=== PATIENT | male | born 1950 | race Caucasian/White ===

== ENCOUNTER → 2017-09-25 | Outpatient (CLI) | payer MEDICARE, OTHER | END | disposition home or self-care (01) | LOC: KCIC MRI 08:18 | DX: M54.16 Radiculopathy, lumbar region (principal); M48.061 Spinal stenosis, lumbar region without neurogenic claudication; E88.2 Lipomatosis, not elsewhere classified; R20.0 Anesthesia of skin | CPT/HCPCS: 72148 ==

== ENCOUNTER → 2017-10-02 | Outpatient (CLI) | payer MEDICARE, OTHER ==
[~2017-10-02] MED LIST: IOHEXOL 180 MG/ML 10 ML VIAL.; methylPREDNISolone ACETATE 40 MG/ML VIAL.; methylPREDNISolone ACETATE 80 MG/ML VIAL.
== END | disposition home or self-care (01) ==
LOC: PNCL 09:50
DX: M51.16 Intervertebral disc disorders with radiculopathy, lumbar region (principal); M48.061 Spinal stenosis, lumbar region without neurogenic claudication; E11.9 Type 2 diabetes mellitus without complications; M19.90 Unspecified osteoarthritis, unspecified site; I10 Essential (primary) hypertension; E78.5 Hyperlipidemia, unspecified; F41.9 Anxiety disorder, unspecified; Z88.6 Allergy status to analgesic agent
CPT/HCPCS: 62323; J1030; J1040

== ENCOUNTER → 2017-10-16 | Outpatient (CLI) | payer MEDICARE, OTHER | END | disposition home or self-care (01) | LOC: PNCL 08:17 | DX: M51.16 Intervertebral disc disorders with radiculopathy, lumbar region (principal); M48.061 Spinal stenosis, lumbar region without neurogenic claudication | CPT/HCPCS: 99212 ==

== ENCOUNTER → 2018-01-25 | Outpatient (CLI) | payer MEDICARE, OTHER | END | disposition home or self-care (01) | LOC: RAD 08:50 | DX: Z01.818 Encounter for other preprocedural examination (principal); M17.11 Unilateral primary osteoarthritis, right knee; S83.241A Other tear of medial meniscus, current injury, right knee, initial encounter; X58.XXXA Exposure to other specified factors, initial encounter; Y93.89 Activity, other specified; Y92.89 Other specified places as the place of occurrence of the external cause; Y99.8 Other external cause status | CPT/HCPCS: 73721; 77073 ==

== ENCOUNTER → 2018-02-15 | Outpatient (CLI) | payer MEDICARE, OTHER ==
[2018-02-15 09:01] LABS: ADD MAN DIFF? NO
[2018-02-15 09:05] LABS: BASO % 1 % (0-3); EOS # 0.1 x10^3/uL (0.0-0.7); EOS % 2 % (0-3); HEMATOCRIT 39.3 % (39.0-53.0); HEMOGLOBIN 13.5 g/dL (13.0-17.5); LYMPH % 37 % (24-48); MEAN CORPUSCULAR HEMOGLOBIN 33 pg (25-35); MEAN CORPUSCULAR HGB CONC 35 g/dL (31-37); MEAN CORPUSCULAR VOLUME 96 fL (79-100); MONO # 0.5 x10^3/uL (0.0-1.1); MONO % 9 % (0-9); NEUT # 2.8 x10^3uL (1.8-7.7); NEUT % 52 % (31-73); PLATELET COUNT 185 x10^3/uL (140-400); RED CELL DISTRIBUTION WIDTH 12.5 % (11.5-14.5); WHITE BLOOD COUNT 5.5 x10^3/uL (4.0-11.0)
[2018-02-15 09:20] LABS: INR 0.9 (0.8-1.1); PARTIAL THROMBOPLASTIN TIME 27 SEC (24-38)
[2018-02-15 09:26] LABS: ANION GAP 9 (6-14); BLOOD UREA NITROGEN 30 mg/dL (8-26); CALCIUM 8.7 mg/dL (8.5-10.1); CARBON DIOXIDE 30 mmol/L (21-32); CHLORIDE 103 mmol/L (98-107); CREATININE 0.8 mg/dL (0.7-1.3); GFR 96.1; GLUCOSE 120 mg/dL (70-99); SODIUM 142 mmol/L (136-145)
[2018-02-15 10:07] LABS: BILIRUBIN,URINE NEGATIVE (NEG); CLARITY,URINE CLEAR; COLOR,URINE YELLOW; GLUCOSE,URINE 500 mg/dL (NEG); NITRITE,URINE NEGATIVE (NEG); PROTEIN,URINE NEGATIVE (NEG-TRACE)
[2018-02-15 10:18] LABS: BACTERIA,URINE 0 /HPF (0-FEW); RBC,URINE 0 /HPF (0-2); SQUAMOUS EPITHELIAL CELL,UR OCC /LPF; WBC,URINE OCC /HPF (0-4)
[2018-02-15 10:57] LABS: SEDIMENTATION RATE 14 (0-15)
[2018-02-15 23:12] LABS: MRSA BY PCR Negative (Negative)
[2018-02-16 02:13] LABS: HEMOGLOBIN A1C 5.9 % (4.8-5.6)
== END | disposition home or self-care (01) ==
LOC: SURGPAT 13:28
DX: Z01.818 Encounter for other preprocedural examination (principal); I10 Essential (primary) hypertension; R79.89 Other specified abnormal findings of blood chemistry; Z98.890 Other specified postprocedural states; Z79.01 Long term (current) use of anticoagulants
CPT/HCPCS: 36415; 71046; 80048; 81001; 82040; 83036; 85025; 85610; 85651; 85730; 87641; 93005

== ENCOUNTER 2018-03-25 08:49 | Emergency (ER) | payer MEDICARE, OTHER | END 2018-03-25 10:14 | disposition home or self-care (01) | LOC: ER 08:49 | DX: G58.8 Other specified mononeuropathies (principal); E11.9 Type 2 diabetes mellitus without complications; I10 Essential (primary) hypertension; Z88.8 Allergy status to other drugs, medicaments and biological substances | CPT/HCPCS: 70450; 72125; 99284-25 ==

== ENCOUNTER → 2018-04-08 | Outpatient (CLI) | payer MEDICARE, OTHER ==
[~2018-04-08] MED LIST changes: +LIDOCAINE 1% PF 2 ML VIAL.; -methylPREDNISolone ACETATE 80 MG/ML VIAL.
== END | disposition home or self-care (01) ==
LOC: PNCL 10:15
DX: M50.123 Cervical disc disorder at C6-C7 level with radiculopathy (principal); M48.02 Spinal stenosis, cervical region; M51.16 Intervertebral disc disorders with radiculopathy, lumbar region; M48.061 Spinal stenosis, lumbar region without neurogenic claudication; E78.00 Pure hypercholesterolemia, unspecified; I10 Essential (primary) hypertension; E11.9 Type 2 diabetes mellitus without complications; F41.9 Anxiety disorder, unspecified; Z88.8 Allergy status to other drugs, medicaments and biological substances; Z98.42 Cataract extraction status, left eye; Z98.41 Cataract extraction status, right eye; Z96.1 Presence of intraocular lens; M17.0 Bilateral primary osteoarthritis of knee; Z98.890 Other specified postprocedural states; Z83.3 Family history of diabetes mellitus; Z82.49 Family history of ischemic heart disease and other diseases of the circulatory system; Z96.651 Presence of right artificial knee joint; Z79.84 Long term (current) use of oral hypoglycemic drugs; Z79.899 Other long term (current) drug therapy
CPT/HCPCS: 62321; J1030; Q9965

== ENCOUNTER → 2018-06-23 | Outpatient (CLI) | payer MEDICARE, OTHER ==
[2018-03-25 10:14] VITALS: BP 114/74
[~2018-06-23] MED LIST changes: +ASPI-482 PO; +CHLO25TA PO; -IOHEXOL 180 MG/ML 10 ML VIAL.; +IOHEXOL 180 MG/ML 10 ML VIAL. ONE; -LIDOCAINE 1% PF 2 ML VIAL.; +LIDOCAINE 2% PF 2ML VIAL. ONE; +LISI-130 PO; +MELO7.5T29 PO; +METF10007 PO; +METO-239 PO; +METO50TA6 PO; +SERT50TA8 PO; +SILD100T PO; +SIMV80TA7 PO; +TAMS0.4C2 PO; +WARF4TAB68 PO; -methylPREDNISolone ACETATE 40 MG/ML VIAL.; +methylPREDNISolone ACETATE 40 MG/ML VIAL. ONE; +methylPREDNISolone ACETATE 80 MG/ML VIAL. ONE
--- NOTE | 2018-06-23 16:08 | PAIN ---
DATE OF SERVICE: 06/23/2018 DIAGNOSES: Lumbar radiculopathy with lumbar spinal stenosis, lumbar degenerative disk disease. HISTORY OF PRESENT ILLNESS: The patient is a 67-year-old male who returns for followup status post lumbar epidural steroid injection x 2 and cervical epidural steroid injection x 1. Most recently seen on 04/08/2018. The patient did very well, 100% improvement of his neck pain. His back pain is what bothers him today. He has not had any injections since October of this year for his back, still some aching pain, beginning to radiate into bilateral lower extremities, tingling, aching, tight sensation, becoming more constant, worse with walking, standing, changing positions, better with sitting or lying down, occasionally wakes him from sleep, but not every night. The patient reports he is increasing his activity and doing greater with household activities, walking and household functions with much greater ease and comfort over the past 1 month or so. The pain began to return in the low back. The patient reports it is a 7 on a scale of 10 at its worst, 4 on average, 2 at its least and is a 4 today. The patient reports no new motor or sensory deficits, no new bowel or bladder incontinence or other complaints. He has recently had his right knee replaced in February and walking much better, walking much further and then doing well with his right knee. PHYSICAL EXAMINATION: VITAL SIGNS: The patient's blood pressure 139/81, pulse 57, respirations 16, temperature is 98.1 degrees Fahrenheit. Height is 68 inches, weighs 192 pounds. GENERAL: The patient is awake, alert, oriented, appropriate, very pleasant demeanor. HEENT: Head is normocephalic, atraumatic. Extraocular movements are intact, symmetrical. Oral cavity: Mucous membranes moist and pink. Dentition is intact. NECK: Shows anterior throat supple without palpable lymphadenopathy noted. Swallow reflex symmetrical. CHEST: Shows normal on inspection. Breath sounds clear to auscultation bilaterally. HEART: Shows S1, S2 clear. No murmurs auscultated. ABDOMEN: Soft, nontender, nondistended. No palpable organomegaly is noted. No rebound or guarding demonstrated. BACK: Shows spine grossly in the midline. Normal appearing thoracic kyphosis, cervical lordotic curvature and lumbar lordotic curvature. Lumbar paraspinous muscle shows symmetrical on inspection. On palpation shows some moderate tenderness but only diffusely with palpation in the low lumbar distribution without radiation. The patient's back shows good rotational motion of the lumbar spine, both laterally as well as extension and flexion without difficulty. The patient's lower extremities show deep tendon reflexes at 2+ in the patellar, 1+ tendo calcaneus, well-healed surgical scars noted over the right knee. Motor exam is strong with 5/5 dorsiflexion, extension, quadriceps and hamstring flexion. Peripheral pulses are 1+ posterior tibia. No peripheral edema is noted bilaterally. Options were discussed with the patient. The patient's old chart was reviewed as his current medication regimen updated. Current review of systems updated today as well. We will proceed with a lumbar epidural steroid injection today, first in this series with fluoroscopic guidance. Risks were again discussed including, but not limited to bleeding, infection, possibility of epidural hematoma and subsequent neurological compromise, dural puncture, headaches, spinal cord and/or nerve damage, side effects of steroid medication and poor results regarding pain control. The patient understands and wished to proceed. The patient will return to clinic in approximately 2 weeks for followup, was counseled on return appointment, activity level and side effects to be aware of. DIAGNOSES: Lumbar radiculopathy with lumbar spinal stenosis, lumbar degenerative disk disease. PROCEDURES: Lumbar epidural steroid injection, translaminar approach at L4-5 using C-arm fluoroscopic guidance under sterile prep and drape using local anesthetic. MEDICATION INJECTED: A total of 120 mg Depo-Medrol plus 10 mL of preservative-free normal saline and 2 mL of Isovue for contrast. CONDITION AT DISCHARGE: Stable. The patient tolerated the procedure well, had no complications. ALOK KING MD DR: ИВАН/kurt JOB#: [id number] / [id number]
== END | disposition home or self-care (01) ==
LOC: PNCL 08:36
PROVIDERS: ATTEND Anesthesiology
DX: M51.16 Intervertebral disc disorders with radiculopathy, lumbar region (principal); M48.061 Spinal stenosis, lumbar region without neurogenic claudication; Z88.8 Allergy status to other drugs, medicaments and biological substances
CPT/HCPCS: 62323; J1030; J1040; J2001; Q9965

== ENCOUNTER → 2018-07-07 | Outpatient (CLI) | payer MEDICARE, OTHER ==
[2018-03-25 10:14] VITALS: BP 114/74
[~2018-07-07] MED LIST changes: -IOHEXOL 180 MG/ML 10 ML VIAL. ONE; -LIDOCAINE 2% PF 2ML VIAL. ONE; -methylPREDNISolone ACETATE 40 MG/ML VIAL. ONE; -methylPREDNISolone ACETATE 80 MG/ML VIAL. ONE
--- NOTE | 2018-07-07 20:07 | PAIN ---
DATE OF SERVICE: 07/07/2018 DIAGNOSES: Lumbar radiculopathy with lumbar spinal stenosis, lumbar degenerative disk disease. HISTORY OF PRESENT ILLNESS: The patient is a 67-year-old male who returns for followup status post lumbar epidural steroid injection x 1 and cervical epidural steroid injection x 1. The patient most recently had his lumbar injection and did very well with about 75% improved overall. The patient reports he is increasing his activity, greater distance walking, bowling, playing golf, doing household activities, feeling much better, sleeping well at night, has some cramping in his legs that is only real complaint at this time. The patient reports he is much better. The numbness in his feet is doing better as well. The patient reports the pain is a 1 on a scale of 10 at its worst, 0 on average, 0 at its least and is 0 today. The patient reports no new motor or sensory deficits. No new bowel or bladder incontinence or other complaints. PHYSICAL EXAMINATION: VITAL SIGNS: The patient's blood pressure 122/70, pulse 56, respirations 16, temperature 97.5 degrees Fahrenheit, height is 68 inches, weighs 191 pounds. GENERAL: The patient is awake, alert, oriented, appropriate, very pleasant demeanor. HEENT: Shows normocephalic, atraumatic. Extraocular movements are intact and symmetrical. Oral cavity: Mucous membranes are moist and pink. Dentition is intact. NECK: Shows anterior throat supple without palpable lymphadenopathy noted. Swallow reflex is symmetrical. CHEST: Shows normal on inspection. Breath sounds are clear to auscultation bilaterally. HEART: Shows S1, S2 clear. No murmurs auscultated. ABDOMEN: Soft, nontender, nondistended. No palpable organomegaly is noted. No rebound or guarding demonstrated. BACK: Shows spine grossly in the midline. Normal appearing thoracic kyphosis and lumbar lordotic curvature. Lumbar paraspinous muscle shows symmetrical on inspection. On palpation shows some very mild tenderness in the lower lumbar distribution of paraspinous muscles, but without radiation, without trigger points. The patient has full rotational motion of lumbar spine both laterally as well as extension and flexion without difficulty. EXTREMITIES: Lower extremities show deep tendon reflexes 2+ in the patellar, 1+ tendo calcaneus tendons. Motor exam is strong with 5/5 dorsiflexion, extension, quadriceps and hamstring flexion and symmetrical. Peripheral pulses are 1+ posterior tibia. No peripheral edema is noted bilaterally. Options were discussed with the patient. The patient's old chart was reviewed as is his current medication regimen updated. Current review of systems is updated today as well. We will hold on any further injections at that time as the patient is doing quite well. The patient will increase his activity as tolerated and will follow up at this time on as needed basis. ALOK KING MD DR: ИВАН/kurt JOB#: [id number] / [id number]
== END | disposition home or self-care (01) ==
LOC: PNCL 08:22
PROVIDERS: ATTEND Anesthesiology
DX: M51.16 Intervertebral disc disorders with radiculopathy, lumbar region (principal); M48.061 Spinal stenosis, lumbar region without neurogenic claudication
CPT/HCPCS: G0463

== ENCOUNTER → 2018-12-17 | Outpatient (CLI) | payer MEDICARE, OTHER ==
[2018-03-25 10:14] VITALS: BP 114/74
[~2018-12-17] MED LIST changes: -CHLO25TA PO; +CHLO25TA10 PO; +IOHEXOL 180 MG/ML 10 ML VIAL. ONE; +SIMV80TA17 PO; -SIMV80TA7 PO; +methylPREDNISolone ACETATE 40 MG/ML VIAL. ONE; +methylPREDNISolone ACETATE 80 MG/ML VIAL. ONE
--- NOTE | 2018-12-18 02:36 | PAIN ---
DATE OF SERVICE: 12/17/2018 DIAGNOSES: 1. Lumbar radiculopathy with lumbar spinal stenosis, lumbar degenerative disk disease. 2. Cervical radiculopathy with cervical spinal stenosis and cervical degenerative disk disease. HISTORY OF PRESENT ILLNESS: The patient is a 68-year-old male who returns for followup status post lumbar epidural steroid injection, most recently seen 06/23/2018. The patient did very well, about 75% improvement. The patient reports the pain is returning now in the low back and into the right lower extremity greater than the left. The patient reports it is present bilaterally, but across the low back into the posterior gluteus, posterior lateral thigh, lateral anterior thighs, more on the right side radiating, but also on the left side into the posterior calf as well as the anterior lower leg. The patient reports it is aching, dull, tight, tingling, becoming more constant, also pain in the base of neck and left upper extremity, which is becoming more noticeable as well, but his chief complaint is low back and lower extremity pain. The patient reports his pain is 8 on a scale of 10 on average, at its worst is also an 8 and 2 at its least, is an 8 today. The patient reports no new motor or sensory deficits. Initially, he was doing very well with increased activity, doing work activities, household activities, traveling with greater ease and comfort. 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 The patient reports it is better with sitting or lying down, does not bother him much. In these positions, he is able to sleep at night, does not disturb his sleep. The patient reports no new motor or sensory deficits, no new bowel or bladder incontinence or other complaints. PHYSICAL EXAMINATION: VITAL SIGNS: The patient's blood pressure 149/81, pulse 61, respirations 18, temperature 97.8 degrees Fahrenheit, height is 68 inches, weight is 201 pounds. GENERAL: The patient is awake, alert, oriented, appropriate, very pleasant demeanor. HEENT: Head is normocephalic, atraumatic. Extraocular movements are intact and symmetrical. Oral cavity: Mucous membranes are moist and pink. Dentition is intact. NECK: Shows anterior throat supple without palpable lymphadenopathy noted. Swallow reflex symmetrical. CHEST: Shows normal on inspection. Breath sounds clear to auscultation bilaterally. HEART: Shows S1, S2 clear. No murmurs auscultated. ABDOMEN: Soft, nontender, nondistended. No palpable organomegaly is noted. No rebound or guarding demonstrated. BACK: Shows spine grossly in the midline. Normal appearing thoracic kyphosis and lumbar lordotic curvature. Cervical paraspinous muscle shows symmetrical on inspection; there is some moderate tenderness in the inferior aspect of the left paraspinous musculature as well as the left superior medial trapezius, but without significant radiation. The patient shows good rotational motion of cervical spine, both laterally as well as extension and flexion without significant increase in pain. The patient's upper extremities show deep tendon reflexes 2+ in the biceps and triceps tendons and are equal. Motor exam is strong with power distribution engineer strength rated at 5/5 on the right and 4/5 with power distribution engineer strength on the left. The patient's back shows spine grossly in the midline. Normal appearing thoracic kyphosis, some minor flattening of lumbar lordotic curvature. Lumbar paraspinous muscle shows symmetrical on inspection, on palpation shows some moderate tenderness diffusely but only diffusely in the low lumbar distribution without significant radiation. The patient has good rotational motion of lumbar spine, both laterally greater than 10 degrees right and left as well as extension greater than 10 degrees, forward flexion 45 degrees without pain reported. EXTREMITIES: Lower extremities show deep tendon reflexes 2+ in the patellar, 1+ tendo-calcaneus tendons are equal. Motor exam is strong with 5/5 dorsiflexion, extension, quadriceps and hamstring flexion equal and symmetrical. Peripheral pulses are 1+ posterior tibial, 2+ radial. No peripheral edema is noted bilaterally upper or lower extremities. Options were discussed with the patient. The patient's old chart was reviewed as his current medication regimen updated. Current review of systems updated today as well. We will proceed with lumbar epidural steroid injections, the first in this series today with fluoroscopic guidance. Risks were again discussed including, but not limited to bleeding, infection, possibility of epidural hematoma, subsequent neurological compromise, dural puncture, headaches, spinal cord and/or nerve damage, side effects of steroid medication and poor results regarding pain control. The patient understands and wished to proceed. The patient will return to clinic in approximately 2 weeks for followup, was counseled as to return appointment, activity level and side effects to be aware of. DIAGNOSES: Lumbar radiculopathy with lumbar degenerative disk disease, lumbar spinal stenosis. PROCEDURE: Lumbar epidural steroid injection, translaminar approach at the L4-L5 level using C-arm fluoroscopic guidance under sterile prep and drape using local anesthetic. MEDICATION INJECTED: A total of 120 mg Depo-Medrol plus 10 mL of preservative-free normal saline and 2 mL for contrast. CONDITION AT DISCHARGE: Stable. The patient tolerated procedure well, had no complications. ALOK KING MD DR: ИВАН/kurt JOB#: [id number] / [id number]
== END | disposition home or self-care (01) ==
LOC: PNCL 11:10
PROVIDERS: ATTEND Anesthesiology
DX: M51.16 Intervertebral disc disorders with radiculopathy, lumbar region (principal); M48.061 Spinal stenosis, lumbar region without neurogenic claudication; M48.02 Spinal stenosis, cervical region; M50.10 Cervical disc disorder with radiculopathy, unspecified cervical region; Z88.8 Allergy status to other drugs, medicaments and biological substances
CPT/HCPCS: 62323; J1030; J1040; Q9965

== ENCOUNTER → 2019-01-06 | Outpatient (CLI) | payer MEDICARE, OTHER ==
[2018-03-25 10:14] VITALS: BP 114/74
--- NOTE | 2019-01-06 20:37 | PAIN ---
DATE OF SERVICE: 01/06/2019 DIAGNOSES: 1. Lumbar radiculopathy with lumbar spinal stenosis, lumbar degenerative disk disease. 2. Cervical radiculopathy with cervical spinal stenosis and cervical degenerative disk disease. HISTORY OF PRESENT ILLNESS: The patient is a 68-year-old male who returns followup status post lumbar epidural steroid injection x 1. The patient reports about 80% improvement only for a few days following the injection. The patient reports the pain returned in the low back and slightly more on the left side than the right, posterior gluteus, posterolateral thigh, lateral anterior thigh, medial thighs again more on the left side. The patient reports still some pain in the base of the neck and left shoulder as well, but his back pain is his primary concern. The patient reports it is aching, tight, shooting, tingling, cramping and becoming more constant with activity. Initially, he was increasing his activity, distance walking, doing some work activities, household activities with greater ease and comfort, traveling better, but then the pain returned. The patient reports it is an 8 on a scale of 10 at its worst, is 8 on average and a 5 at its least over the past week and is an 8 today. The patient reports no new motor or sensory deficits, no new bowel or bladder incontinence or other complaints. PHYSICAL EXAMINATION: VITAL SIGNS: The patient's blood pressure 113/67, pulse is 56, respirations 16, temperature 98.1 degrees Fahrenheit, height is 68 inches, weighs 198 pounds. GENERAL: The patient is awake, alert, oriented, appropriate, very pleasant demeanor. HEENT: Head is normocephalic, atraumatic. Extraocular movements are intact and symmetrical. Oral cavity: Mucous membranes moist and pink. Dentition is intact. NECK: Shows anterior throat supple without palpable lymphadenopathy noted. Swallow reflex symmetrical. CHEST: Shows normal with inspection. Breath sounds clear to auscultation bilaterally. HEART: Shows S1, S2 clear. No murmurs auscultated. ABDOMEN: Soft, nontender, nondistended. No palpable organomegaly is noted. No rebound or guarding demonstrated. BACK: Shows spine grossly in the midline. Normal appearing thoracic kyphosis and the minor flattening of lumbar lordotic curvature. Cervical paraspinous muscle shows symmetrical on inspection as well. With palpation shows some mild tenderness, but only diffusely without radiation. The patient has good rotational motion of cervical spine, both laterally as well as extension and flexion without difficulty. The patient's lumbar paraspinous muscle shows symmetrical on inspection. On palpation shows some moderate tenderness diffusely bilaterally, but only diffusely without significant radiation. The patient has good rotational motion greater than 10 degrees right and left as well as extension greater than 10 degrees, forward flexion 45 degrees without significant pain reported. EXTREMITIES: Lower extremities show deep tendon reflexes at 1+ in the patellar and tendo calcaneus tendons are equal. Motor exam is approximately 5 on a scale of 5, but equal and symmetrical bilaterally with dorsiflexion, extension, quadriceps and hamstring flexion. Peripheral pulses are 1+ posterior tibial. No peripheral edema is noted bilaterally. Options were discussed with the patient. The patient's old chart was reviewed as his current medication regimen updated. Current review of systems updated today as well. We will proceed with a second in the series of lumbar epidural steroid injection today with fluoroscopic guidance. Risks were again discussed including, but not limited to bleeding, infection, possibility of epidural hematoma, subsequent neurological compromise, dural puncture, headaches, spinal cord and/or nerve damage, side effects of steroid medication and poor results regarding pain control. The patient understands and wished to proceed. The patient will return to clinic in approximately 2 weeks for followup, was counseled as to return appointment, activity level and side effects to be aware of. DIAGNOSIS: Lumbar radiculopathy with lumbar spinal stenosis, lumbar degenerative disk disease. PROCEDURE: Lumbar epidural steroid injection, translaminar approach at L4-L5 level using C-arm fluoroscopic guidance under sterile prep and drape using local anesthetic. MEDICATION INJECTED: A total of 120 mg Depo-Medrol plus 10 mL of preservative-free normal saline and 2 mL of Isovue for contrast. CONDITION AT DISCHARGE: Stable. The patient tolerated procedure well with no complications. ALOK KING MD DR: ИВАН/kurt JOB#: [id number] / [id number]
== END | disposition home or self-care (01) ==
LOC: PNCL 08:53
PROVIDERS: ATTEND Anesthesiology
DX: M51.16 Intervertebral disc disorders with radiculopathy, lumbar region (principal); M48.061 Spinal stenosis, lumbar region without neurogenic claudication; M50.10 Cervical disc disorder with radiculopathy, unspecified cervical region; M48.02 Spinal stenosis, cervical region; Z88.8 Allergy status to other drugs, medicaments and biological substances
CPT/HCPCS: 62323; J1030; J1040; Q9965

== ENCOUNTER → 2019-01-20 | Outpatient (CLI) | payer MEDICARE, OTHER ==
[2018-03-25 10:14] VITALS: BP 114/74
--- NOTE | 2019-01-20 18:41 | PAIN ---
DATE OF SERVICE: 01/20/2019 DIAGNOSES: 1. Lumbar radiculopathy with lumbar spinal stenosis, lumbar degenerative disk disease. 2. Cervical radiculopathy with cervical spinal stenosis and cervical degenerative disk disease. HISTORY OF PRESENT ILLNESS: The patient is 68-year-old male who returns for followup status post lumbar epidural steroid injection x 2. The patient reports about 90% improvement in his low back and leg pain. His chief complaint is neck and left upper extremity pain. The patient reports he has been increasing his walking distance, doing work activities, household activities, travelling with greater ease and comfort, sleeping better at night, but it still awakens him from sleep and is mainly in the base of the left shoulder, into the left arm with radiating pain into the left posterior upper arm, forearm, into the thumb and first finger on the left side with some tingling in the hand. The patient reports it is aching and tingling, becoming more constant; rates it is as 7 on a scale of 10 at all times, worst, average and at least and is 7 today. The patient reports no new motor or sensory deficits, no new bowel or bladder incontinence or other complaints. PHYSICAL EXAMINATION: VITAL SIGNS: The patient's blood pressure is 120/71, pulse 53, respirations 16, temperature 98.2 degrees Fahrenheit, height is 68 inches, weight is 194 pounds. GENERAL: The patient is awake, alert, oriented, appropriate, very pleasant demeanor. HEENT: Exam shows normocephalic, atraumatic. Extraocular movements are intact and symmetrical. Oral cavity: Mucous membranes is moist and pink. Dentition is intact. NECK: Shows anterior throat supple without palpable lymphadenopathy noted. Swallow reflex symmetrical. CHEST: Shows normal with inspection. Breath sounds clear to auscultation bilaterally. HEART: Shows S1, S2 clear. No murmurs auscultated. ABDOMEN: Soft, nontender, nondistended. No palpable organomegaly is noted. No rebound or guarding demonstrated. BACK: Shows spine grossly in the midline. Normal-appearing thoracic kyphosis, cervical lordotic curvature and lumbar lordotic curvature. Cervical paraspinous muscle shows symmetrical on inspection; on palpation shows some moderate tenderness diffusely in the inferior aspect of the cervical paraspinous muscles, but only diffusely without radiation. The patient has good rotational motion of cervical spine, both laterally as well as extension and flexion without difficulty. EXTREMITIES: The patient's upper extremities show deep tendon reflexes 2+ in biceps and triceps tendons. Motor exam is strong with 5/5 wallpaper remover steam strength, bicep and tricep flexion and symmetrical. Peripheral pulses are 2+ radial. No peripheral edema is noted. Options were discussed with the patient. The patient's old chart was reviewed as was his current medication regimen updated. Current review of systems updated today as well. We will proceed with a cervical epidural steroid injection today with fluoroscopic guidance. Risks were discussed including but not limited to bleeding, infection, possibility of epidural hematoma, subsequent neurologic compromise, dural puncture, headaches, spinal cord and/or nerve damage, side effects of steroid medication and poor results regarding pain control. The patient understands and wished to proceed. The patient will return to clinic in approximately 2 weeks for followup, was counseled as to return appointment, activity level and side effects to be aware of. DIAGNOSES: Cervical radiculopathy with cervical spinal stenosis and cervical degenerative disk disease. PROCEDURE: Cervical epidural steroid injection, translaminar approach C6-C7 level using C-arm fluoroscopic guidance under sterile prep and drape using local anesthetic. MEDICATION INJECTED: A total of 120 mg Depo-Medrol plus 5 mL of preservative-free normal saline and 2 mL of Isovue for contrast. CONDITION AT DISCHARGE: Stable. The patient tolerated the procedure well, had no complications. ALOK KING MD DR: ИВАН/kurt JOB#: [id number] / [id number]
== END | disposition home or self-care (01) ==
LOC: PNCL 08:51
PROVIDERS: ATTEND Anesthesiology
DX: M50.123 Cervical disc disorder at C6-C7 level with radiculopathy (principal); M48.02 Spinal stenosis, cervical region; M51.16 Intervertebral disc disorders with radiculopathy, lumbar region; M48.061 Spinal stenosis, lumbar region without neurogenic claudication; Z88.8 Allergy status to other drugs, medicaments and biological substances
CPT/HCPCS: 62321; J1030; J1040; Q9965

== ENCOUNTER → 2019-08-08 | Outpatient (CLI) | payer MEDICARE, OTHER ==
[2018-03-25 10:14] VITALS: BP 114/74
[~2019-08-08] MED LIST changes: -IOHEXOL 180 MG/ML 10 ML VIAL. ONE; -methylPREDNISolone ACETATE 40 MG/ML VIAL. ONE; -methylPREDNISolone ACETATE 80 MG/ML VIAL. ONE
--- NOTE | 2019-08-08 15:00 | KCIC ---
EXAM: Lower extremity arterial Doppler sonogram with ankle-brachial indices (KANDICE). HISTORY: Claudication. Hypertension. TECHNIQUE: Doppler sonographic evaluation of the lower extremities was performed and pressure readings were assessed. FINDINGS: Right brachial pressure: 133 mmHg Left brachial pressure: 133 mmHg Right ankle pressure (posterior tibial artery): 155 mmHg Right ankle pressure (dorsalis pedis artery): 163 mmHg Right KANDICE: 1.22 Left ankle pressure (posterior tibial artery): 165 mmHg Left ankle pressure (dorsalis pedis artery): 172 mmHg Left KANDICE: 1.29 IMPRESSION: Normal bilateral ankle-brachial indices. Electronically signed by: Marta Vázquez MD (08/08/2019 2:58 PM) [id number]
== END | disposition home or self-care (01) ==
LOC: KCIC US 12:15
PROVIDERS: ATTEND Family Medicine
DX: I73.9 Peripheral vascular disease, unspecified (principal); E11.9 Type 2 diabetes mellitus without complications; I10 Essential (primary) hypertension
CPT/HCPCS: 93922

== ENCOUNTER → 2019-10-24 | Outpatient (CLI) | payer MEDICARE, OTHER ==
[2018-03-25 10:14] VITALS: BP 114/74
--- NOTE | 2019-10-24 16:30 | KCIC ---
UPPER EXT JOINT WO CONT LEFT dated 10/24/2019 1:15 PM Indication: Shoulder pain , atrophy history of prior surgery. Increasing left arm weakness. Comparison: No comparison is available. Technique: Routine multiplanar multisequence imaging performed. . Findings: There is intermediate T2 signal within the supraspinatus and infraspinatus portions of the rotator cuff. Mild articular surface partial tearing of the anterior supraspinatus and central infraspinatus footplate no full-thickness tear or cuff retraction. Subscapularis is intact. Mild hypertrophic change of the AC joint. Mild undersurface spurring of the acromium. No cigarette subacromial/subdeltoid bursal fluid collection. The acromium is type I morphology. Minimal increased signal within lung head biceps tendon proximally. Extra articular portion courses within the bicipital groove. Biceps anchor intact. There is mild hypertrophic change of the glenohumeral joint with mild thinning of the glenoid articular cartilage. No signal joint effusion or loose body. The glenoid labrum is grossly intact. No apparent labral tear or perilabral cyst. Suprascapular and spinoglenoid notches are clear. There is mild atrophy of the infraspinatus and teres minor muscles. No significant muscle edema. No bone marrow edema or periostitis. IMPRESSION: 1. Rotator cuff tendinopathy with mild articular surface partial tearing. No full-thickness tear or cuff retraction. 2. Mild AC joint arthropathy with undersurface spurring. 3. Mild biceps tendinosis. 4. Mild degenerative arthrosis and chondral malacia the glenohumeral joint. No apparent labral tear. 5. There is mild fatty atrophy of the infraspinatus and teres minor, nonspecific. No significant intramuscular edema to suggest an acute denervation. Electronically signed by: Jonathon Damian MD (10/24/2019 4:28 PM) [facility]-KCIC2
== END | disposition home or self-care (01) ==
LOC: KCIC MRI 13:50
PROVIDERS: ATTEND Family Medicine
DX: M62.512 Muscle wasting and atrophy, not elsewhere classified, left shoulder (principal); M75.102 Unspecified rotator cuff tear or rupture of left shoulder, not specified as traumatic; M19.012 Primary osteoarthritis, left shoulder
CPT/HCPCS: 73221

== ENCOUNTER → 2019-12-08 | Outpatient (CLI) | payer MEDICARE, OTHER ==
[2018-03-25 10:14] VITALS: BP 114/74
[~2019-12-08] MED LIST changes: +ASPI81TA50 PO; +DOXY20TA5 PO; +EZET10TA20 PO; +IOHEXOL 180 MG/ML 10 ML VIAL. ONE; +methylPREDNISolone ACETATE 40 MG/ML VIAL. ONE; +methylPREDNISolone ACETATE 80 MG/ML VIAL. ONE
--- NOTE | 2019-12-08 12:26 | PAIN ---
DATE OF SERVICE: 12/08/2019 PROGRESS NOTE FOR PAIN CLINIC DIAGNOSES: 1. Lumbar radiculopathy with lumbar degenerative disc disease and lumbar spinal stenosis. 2. Cervical radiculopathy with cervical spinal stenosis and cervical degenerative disc disease. HISTORY OF PRESENT ILLNESS: The patient is a 68-year-old male who returns for followup, last seen on 01/20/2019. The patient had cervical epidural steroid injection at that time, reports about 80% improvement, still doing very well. His chief complaint today is his low back pain into the bilateral lower extremities, lateral thighs, posterior gluteus, and anterior thighs. The patient reports it across the low back as well. The patient reports he has been getting worse for about the past 2 weeks or so. The patient reports his pain is an 8 on a scale of 10 at its worse across the low back and in the legs over the past week, 4 on average, 0 at its least and is a 4 today. The patient reports it is worse with standing, better sometimes with walking or sitting, but has been awakening him from sleep very rarely. The patient reports it is a tight pain, it is described as constant aching across the low back, shooting and stabbing at times in the legs, but mostly across the low back. The patient reports no new motor or sensory deficits, no new bowel or bladder incontinence, and again until about 2 weeks ago, the pain was doing pretty well. No new injuries or accidents that he is aware of to cause the pain. PHYSICAL EXAMINATION: VITAL SIGNS: The patient's blood pressure is 134/86, pulse 71, respirations are 18, temperature is 98.7 degrees Fahrenheit, height is 68 inches, and weight is 198 pounds. GENERAL: The patient is awake, alert, oriented, appropriate, very pleasant demeanor. HEENT: Shows normocephalic and atraumatic. Extraocular movements are intact and symmetrical. Oral cavity, his mucous membranes are moist and pink. Dentition is intact. NECK: Shows anterior throat supple without palpable lymphadenopathy noted. Swallow reflex is symmetrical. CHEST: Shows normal on inspection. Breath sounds are clear bilaterally. HEART: Shows S1 and S2 clear with no murmurs auscultated. ABDOMEN: Soft, nontender, and nondistended. No palpable organomegaly is noted. No rebound or guarding demonstrated. BACK: Shows spine grossly in the midline. Normal-appearing thoracic kyphosis and mild lumbar lordotic curvature flattening. Lumbar paraspinous muscle shows symmetrical on inspection, on palpation shows some moderate tenderness, but diffusely in the low lumbar distribution only without radiation. The patient has good rotational motion of the lumbar spine, both laterally as well as extension and flexion without significant difficulty. EXTREMITIES: Lower extremities show deep tendon reflexes at 2+ in the patellar, 1+ tendo-calcaneus tendons. Motor exam is strong with 5/5 dorsiflexion, extension, quadriceps, and hamstring flexion. Peripheral pulses are 1+ posterior tibia. No peripheral edema is noted bilaterally. Options were discussed with the patient. The patient's old chart was reviewed as his current medication regimen updated. Current review of systems updated today as well. We will proceed with a lumbar epidural steroid injection today with fluoroscopic guidance. Risks were again discussed including, but not limited to bleeding, infection, possibility of epidural hematoma, subsequent neurological compromise, dural puncture, headaches, spinal cord and/or nerve damage, side effects of steroid medication and poor results regarding pain control. The patient understands and wished to proceed. The patient will return to the clinic in approximately 2 weeks for followup. He was counseled as to return appointment, activity level, and side effects to be aware of. DIAGNOSIS: Lumbar radiculopathy with lumbar spinal stenosis, lumbar degenerative disc disease. PROCEDURE: Lumbar epidural steroid injection, translaminar approach at L4-L5 level using C-arm fluoroscopic guidance under sterile prep and drape using local anesthetic. MEDICATION INJECTED: A total of 120 mg Depo-Medrol plus 10 mL of preservative-free normal saline and 2 mL of contrast. CONDITION AT DISCHARGE: Stable. The patient tolerated the procedure well, had no complications. ALOK KING MD DR: ИВАН/kurt JOB#: [id number] / [id number]
== END | disposition home or self-care (01) ==
LOC: PNCL 11:09
PROVIDERS: ATTEND Anesthesiology
DX: M51.16 Intervertebral disc disorders with radiculopathy, lumbar region (principal); M48.061 Spinal stenosis, lumbar region without neurogenic claudication; M50.123 Cervical disc disorder at C6-C7 level with radiculopathy; Z98.890 Other specified postprocedural states; Z88.6 Allergy status to analgesic agent
CPT/HCPCS: 62323; J1030; J1040; Q9965

== ENCOUNTER → 2020-06-08 | Outpatient (CLI) | payer MEDICARE, OTHER ==
[2018-03-25 10:14] VITALS: BP 114/74
--- NOTE | 2020-06-08 09:34 | PDOC ---
Progress Note - Pain Clinic Date of Service: DOS: DATE: 06/08/20 TIME: 09:29 Diagnosis: Dx: Lumbar radiculopathy with lumbar spinal stenosis and lumbar degenerative disc disease Cervical radiculopathy with cervical spinal stenosis and cervical degenerative disc disease History or Present Illness: HPI: 6-year-old male returns follow-up status post lumbar epidural steroid injections and cervical epidural steroid injections most recently December 08, 2019 patient had lumbar epidural steroid injection with about 80% improvement until the last 4 to 5 weeks the patient reports it has been coming back in the low back and the bilateral lower extremities right side is equal to left lateral thighs posterior gluteus lateral anterior thighs medial thighs medial lower legs with some tingli ng in the feet as well bilaterally patient reports is worse at night is had some cramping in the calves describes pain the pain is aching and tight tingling in the legs shooting and stabbing can be constant severe with walking and standing, better with sitting or laying down, generally does not awaken him from sleep at night. Patient reports no new motor or sensory deficits no bowel or bladder incontinence rates his pain as a 10 on scale 10 is worse over the past week 8 on average 6 at its least. Patient was the pain is a 6 today. Physical Exam: VS: Blood pressure is 121/77 pulse 61 respirations are 16 temperature is 90.3 F height is 5 feet 8 inches weight is 186 pounds PE: PHYSICAL EXAMINATION: GENERAL: The patient is awake, alert, oriented, appropriate, very pleasant demeanor HEENT: Shows normocephalic, atraumatic. Extraocular movements are intact and symmetrical. NECK: Shows anterior throat supple without palpable lymphadenopathy noted. Swallow reflex symmetrical. CHEST: Shows normal on inspection. Breath sounds are clear bilaterally, no rales rhonchi or wheezes auscultated. HEART: Shows S1, S2 clear. No murmurs auscultated. ABDOMEN: Soft, nontender, nondistended, obese. No palpable organomegaly is noted. No rebound or guarding demonstrated. BACK: Shows spine grossly in the midline. Normal-appearing cervical lordotic curvature. There is slightly increased thoracic kyphosis, some minor flattening of the lumbar lordotic curvature. Lumbar paraspinous muscles show symmetrical on inspection, on palpation shows some moderate tenderness diffusely throughout the upper, middle and lower distribution of the paraspinous muscles bilaterally without specific trigger points, without radiation of pain. The patient has good rotational motion of the lumbar spine, both laterally as well as extension and flexion without significant difficulty. No tenderness over the spinous processes, sacrum or sacroiliac regions. EXTREMITIES: Lower extremities show deep tendon reflexes 2+ in the patellar and tendo calcaneus tendons. Motor exam is 5 on a scale of 5 with right dorsiflexion, extension, quadriceps and hamstring flexion and 5/5 on the left. Peripheral pulses are 1+ posterior tibial. No peripheral edema is noted bilaterally. Lower extremities are warm and dry to touch, equal in color and appearance. The patient is able to stand, stand on his toes without significant difficulty or loss of balance walks with a normal-appearing gait does not appear to favor the right or left lower extremity.. SKIN: Shows warm and dry, good turgor. No edema. No sores, rashes or bruising throughout. Procedure: Procedure: Options were discussed with the patient. Patient's old chart was reviewed, his current medication regimen updated current review of systems updated today as well we will proceed with a first in the series lumbar epidural steroid injection today with fluoroscopic guidance. Risks were discussed including but not limited to: Bleeding, infection, possibility of epidural hematoma and subsequent neurological compromise, dural puncture, headaches, spinal cord and /or nerve damage, side effects of steroid medication, and poor results regarding pain control. Patient understands wished to proceed. Patient return to the clinic in approximate 2 weeks for follow-up was counseled as to return appointment activity level and side effects to be aware of. Medication Injected: Med Injected: Procedure is lumbar epidural steroid injection under local anesthetic using sterile prep and drape at the L4-5 level using C-arm fluoroscopic guidance in [facility] AP and lateral views medications injected is 120 mg Depo-Medrol + 10 mL preservative-free normal saline and 2 mL contrast- condition at discharge is stable patient tolerated procedure well had no complications. Condition at Discharge: Condition at Discharge: Condition at discharge is stable patient tolerated the procedure well had no complications. ALOK KING MD Jun 08, 2020 09:34
== END | disposition home or self-care (01) ==
LOC: PNCL 08:52
PROVIDERS: ATTEND Anesthesiology
DX: M51.16 Intervertebral disc disorders with radiculopathy, lumbar region (principal); M48.061 Spinal stenosis, lumbar region without neurogenic claudication; M50.10 Cervical disc disorder with radiculopathy, unspecified cervical region; I10 Essential (primary) hypertension; E11.9 Type 2 diabetes mellitus without complications; M48.02 Spinal stenosis, cervical region; Z88.8 Allergy status to other drugs, medicaments and biological substances; Z79.82 Long term (current) use of aspirin; Z82.49 Family history of ischemic heart disease and other diseases of the circulatory system; Z83.3 Family history of diabetes mellitus
CPT/HCPCS: 62323; J1030; J1040; Q9965

== ENCOUNTER → 2020-06-22 | Outpatient (CLI) | payer MEDICARE, OTHER ==
[2018-03-25 10:14] VITALS: BP 114/74
--- NOTE | 2020-06-22 09:53 | PDOC ---
Progress Note - Pain Clinic Date of Service: DOS: DATE: 06/22/20 TIME: 09:50 Diagnosis: Dx: Lumbar radiculopathy with lumbar spinal stenosis and lumbar degenerative disc disease Cervical radiculopathy with cervical spinal stenosis and cervical degenerative disc disease History or Present Illness: HPI: 69-year-old male returns follow-up status post lumbar epidural straight injection x1. Patient reports doing very well about 80 to 90% improvement in the low back pain for the last 6 weeks or so patient reports the pain is re turning now in the low back and into the right lower extremity more than the left in the posterior gluteus posterior lateral thigh lateral anterior thigh anterior medial thigh and into the calf as well as numbness and tingling patient reports worse with walking standing changing positions initially was doing much better with all his activities walking doing household activities try with greater ease and comfort patient reports pain now is an 8 on scale 10 is worse over the past week 3 on average to its least is a 3 today patient which is cramping and tight in the low back more constant with activity rating the right lower extremity as noted. Patient reports no new motor or sensory deficits no new bowel or bladder incontinence or other complaints. Physical Exam: VS: Blood pressure is 130/72 pulse 58 respirations are 16 temperature 98.9 F height is 5 inches weight is 183 pounds PE: PHYSICAL EXAMINATION: GENERAL: The patient is awake, alert, oriented, appropriate, very pleasant demeanor HEENT: Shows normocephalic, atraumatic. Extraocular movements are intact and symmetrical. Oral cavity: Mucous membranes moist and pink. Dentition is intact. NECK: Shows anterior throat supple without palpable lymphadenopathy noted. Swallow reflex symmetrical. CHEST: Shows normal on inspection. Breath sounds are clear bilaterally. HEART: Shows S1, S2 clear. No murmurs auscultated. ABDOMEN: Soft, nontender, nondistended. No palpable organomegaly is noted. No rebound or guarding demonstrated. BACK: Shows spine grossly in the midline. Normal-appearing cervical lordotic curvature. There is slightly increased thoracic kyphosis, some minor flattening of the lumbar lordotic curvature. Lumbar paraspinous muscles show symmetrical on inspection, on palpation shows some moderate tenderness diffusely throughout the upper, middle and lower distribution of the paraspinous muscles bilaterally, and without specific trigger points, without radiation of pain. The patient has good rotational motion of the lumbar spine, both laterally as well as extension and flexion without significant difficulty. No tenderness over the spinous processes, sacrum or sacroiliac regions. EXTREMITIES: Lower extremities show deep tendon reflexes 2+ in the patellar and tendo calcaneus tendons. Motor exam is 5 on a scale of 5 with right dorsiflexion, extension, quadriceps and hamstring flexion and 5/5 on the left. Peripheral pulses are 1+ posterior tibial. No peripheral edema is noted bilaterally. Lower extremities are warm and dry to touch, equal in color and appearance. Procedure: Procedure: Options were discussed with the patient. Patient's old chart was reviewed his his current medication regimen updated current review of systems updated today as well. We will proceed with a second in the series lumbar epidural steroid injection today with fluoroscopic guidance. Risks were discussed including but not limited to: Bleeding, infection, possibility of epidural hematoma and subsequent neurological compromise, dural puncture, headaches, spinal cord and/or nerve damage, side effects of steroid medication, and poor results regarding pain control. Patient understands wished to proceed. Patient will return to clinic in possibly 2 weeks for follow-up was counseled as to return appointment activity level and side effects to be aware of. Medication Injected: Med Injected: Procedure is lumbar epidural steroid injection under local anesthetic using sterile prep and drape at the L 4 5 level using C-arm fluoroscopic guidance in both AP and lateral views medications injected is 120 mg Depo-Medrol + 10 mL preservative-free normal saline and 2 mL contrast- condition at discharge is stable patient tolerated procedure well had no complications. Condition at Discharge: Condition at Discharge: Condition at discharge is stable patient tolerated the procedure well had no complications. ALOK KING MD Jun 22, 2020 09:53
== END ==
LOC: PNCL 08:56
PROVIDERS: ATTEND Anesthesiology
DX: M51.16 Intervertebral disc disorders with radiculopathy, lumbar region (principal); M48.061 Spinal stenosis, lumbar region without neurogenic claudication; M48.02 Spinal stenosis, cervical region; I10 Essential (primary) hypertension; E11.9 Type 2 diabetes mellitus without complications; Z83.3 Family history of diabetes mellitus; Z82.49 Family history of ischemic heart disease and other diseases of the circulatory system; Z88.8 Allergy status to other drugs, medicaments and biological substances; Z79.82 Long term (current) use of aspirin; Z79.899 Other long term (current) drug therapy
CPT/HCPCS: 62323; J1030; J1040; Q9965

== ENCOUNTER → 2020-10-04 | Outpatient (CLI) | payer MEDICARE, OTHER ==
[2018-03-25 10:14] VITALS: BP 114/74
[~2020-10-04] MED LIST changes: -IOHEXOL 180 MG/ML 10 ML VIAL. ONE; +IOHEXOL 240 MG/ML 50ML VIAL. PO ONE; +IOHEXOL 300 MG/ML 100ML VIAL. IV ONE; -methylPREDNISolone ACETATE 40 MG/ML VIAL. ONE; -methylPREDNISolone ACETATE 80 MG/ML VIAL. ONE
--- NOTE | 2020-10-04 17:43 | KCIC ---
CT scan of the abdomen and pelvis with contrast 10/04/2020 CLINICAL HISTORY: Left-sided abdominal pain for 2 months. TECHNIQUE: After the oral and intravenous ministration contrast, 2 was, 5 mm axial sections were obta ined through abdomen and pelvis. One or more of the following individualized dose reduction techniques were utilized for this study: 1. Automated exposure control. 2. Adjustment of the mA and/or kV according to patient size. 3. Use of iterative reconstruction technique. FINDINGS: Images through the lung bases demonstrate minimal dependent subsegmental atelectasis bilate rally. The liver parenchyma has a decreased attenuation consistent with fatty infiltration. The spleen, panc reas, adrenal glands and kidneys are within normal limits. Atherosclerotic calcification of the abdominal aorta is seen. The abdominal aorta tapers normally. Th e gallbladder is contracted. No free fluid or free air is seen within the abdomen. There is no eviden ce of bowel obstruction. The appendix is well-visualized and is within normal limits. Images through the pelvis demonstrate the urinary bladder be contracted. The prostate gland is enlarg ed likely related to BPH. Calcifications are seen within the pelvis consistent with phleboliths. No f ree fluid is seen. Minimal S-shaped curvature of the thoracolumbar spine is noted. Degenerative mccullough es are seen involving the lower thoracic and throughout the lumbar spine along with both hips. IMPRESSION: No acute abnormality is seen. Electronically signed by: Primitivo Cantrell MD (10/04/2020 5:40 PM) [id number]
== END ==
LOC: KCIC CT 12:20
PROVIDERS: ATTEND Family Medicine
DX: N40.0 Benign prostatic hyperplasia without lower urinary tract symptoms (principal); K76.0 Fatty (change of) liver, not elsewhere classified; M47.816 Spondylosis without myelopathy or radiculopathy, lumbar region; M43.8X6 Other specified deforming dorsopathies, lumbar region; I70.0 Atherosclerosis of aorta
CPT/HCPCS: 74177; 82565; Q9966; Q9967

== ENCOUNTER 2020-11-01 12:12 | Emergency (ER) | payer MEDICARE, OTHER ==
[~2020-11-01] VITALS: Ht 172.7 cm; Wt 84.0 kg
[~2020-11-01 12:12] MED LIST changes: -IOHEXOL 240 MG/ML 50ML VIAL. PO ONE; -IOHEXOL 300 MG/ML 100ML VIAL. IV ONE; +SERT-267 PO; -SERT50TA8 PO
--- NOTE | 2020-11-01 13:11 | PHYS DOC ---
Past Medical History Past Medical History: Arthritis, Diabetes-Type II, Hypertension Past Surgical History: Other Additional Past Surgical Histo: LEFT SHOULDER, RIGHT KNEE, RIGHT FOOT, LIPOMA REMOVED LEFT CHEST Smoking Status: Never Smoker Alcohol Use: None Drug Use: None General Adult EDM: Chief Complaint: HYPERTENSION HPI: HPI: Patient is a 69 year old male with a history of diabetes, HTN, who presents today concerned his blood pressure is high. Patient states this morning his blood pressure was 146/81, after having breakfast of eggs and haskins, he took lisinopril, he rechecked his blood pressure later, 190s over 80s and decided to come to the ED. Denies any symptoms, he states he has an appointment with his own PCP at 2 PM today. Review of Systems: Review of Systems: Constitutional: Denies fever or chills. [] Eyes: Denies change in visual acuity. [] HENT: Denies nasal congestion or sore throat. [] Respiratory: Denies cough or shortness of breath. [] Cardiovascular: Reports high blood pressure. Denies chest pain or edema. [] GI: Denies abdominal pain, nausea, vomiting, bloody stools or diarrhea. [] : Denies dysuria. [] Musculoskeletal: Denies back pain or joint pain. [] Integument: Denies rash. [] Neurologic: Denies headache, focal weakness or sensory changes. [] Psychiatric: Denies depression or anxiety. [] Heart Score: Risk Factors: Risk Factors: DM, Current or recent (<one month) smoker, HTN, HLP, family history of CAD, obesity. Risk Scores: Score 0 - 3: 2.5% MACE over next 6 weeks - Discharge Home Score 4 - 6: 20.3% MACE over next 6 weeks - Admit for Clinical Observation Score 7 - 10: 72.7% MACE over next 6 weeks - Early Invasive Strategies Allergies: Allergies: Allergies Coded Allergies Type Severity Reaction Last Updated Verified ibuprofen Allergy Intermediate Hives 10/02/17 Yes Physical Exam: PE: Constitutional: Well developed, well nourished, no acute distress, non-toxic appearance. [] HENT: Normocephalic, atraumatic, bilateral external ears normal, oropharynx moist, no oral exudates, nose normal. [] Eyes: PERRLA, EOMI, conjunctiva normal, no discharge. [] Neck: Normal range of motion, no tenderness, supple, no stridor. [] Cardiovascular:Heart rate regular rhythm, no murmur [] Lungs & Thorax: Bilateral breath sounds clear to auscultation [] Abdomen: Bowel sounds normal, soft, no tenderness, no masses, no pulsatile masses. [] Skin: Warm, dry, no erythema, no rash. [] Back: No tenderness, no CVA tenderness. [] Extremities: No tenderness, no cyanosis, no clubbing, ROM intact, no edema. [] Neurologic: Alert and oriented X 3, normal motor function, normal sensory function, no focal deficits noted. [] Psychologic: Affect normal, judgement normal, mood normal. [] Current Patient Data: Vital Signs: Vital Signs Date Time Temp Pulse Resp B/P (MAP) Pulse Ox O2 Delivery O2 Flow Rate FiO2 11/01/20 12:18 98.7 87 18 193/84 (120) 89 Room Air 98.7 EKG: EK Interpreted by Dr. Rogers sinus rhythm HR 73 no STEMI[] Radiology/Procedures: Radiology/Procedures: [] Course & Med Decision Making: Course & Med Decision Making Pertinent Labs and Imaging studies reviewed. (See chart for details) This is a 69-year-old male patient with history of hypertension presented to the ED today complaining of high blood pressure that began this morning. Blood pressure 146/81 at home, this is after taking lisinopril. He retook his blood pressure couple minutes later, it was 190s over 80s, came to the ED. Blood pressure on arrival here was 193/84 heart rate 87, respiration 18 on room air, temperature 98.7, O2 sats 98%, he has no neurological or cardiac symptoms. He has an appointment with his own primary care doctor at 2 PM. He has no other symptoms. labs were drawn, EKG was done, he received clonidine in the ED and decided to go to his PCP's office at 1350 for 1400 appointment. Mark Disclaimer: Mark Disclaimer: This electronic medical record was generated, in whole or in part, using a voice recognition dictation system. Departure Departure Impression: Primary Impression: Hypertension Qualified Codes: I10 - Essential (primary) hypertension Disposition: 01 DC HOME SELF CARE/HOMELESS Condition: STABLE Referrals: Ofe BURDICK MD (PCP) please head to Dr. Angulo office now Patient Instructions: Hypertension Additional Instructions: Please head to Dr. Angulo office. You received Clonidine 0.2 mg in the Ed at 1340 JAVI GUEVARA APRN Nov 01, 2020 13:11
[2020-11-01] MEDS ORDERED: cloNIDine HCL 0.1 MG TABLET PO ONE (13:30)
[2020-11-01 13:40] VITALS: BP 200/84
[2020-11-01 13:45] LABS: BASO % 1 % (0-3); EOS # 0.1 x10^3/uL (0.0-0.7); EOS % 1 % (0-3); HEMATOCRIT 41.4 % (39.0-53.0); HEMOGLOBIN 14.1 g/dL (13.0-17.5); LYMPH # 1.6 x10^3/uL (1.0-4.8); LYMPH % 30 % (24-48); MEAN CORPUSCULAR HEMOGLOBIN 33 pg (25-35); MEAN CORPUSCULAR HGB CONC 34 g/dL (31-37); MEAN CORPUSCULAR VOLUME 96 fL (79-100); MONO # 0.5 x10^3/uL (0.0-1.1); MONO % 10 % (0-9); NEUT # 3.1 x10^3/uL (1.8-7.7); NEUT % 59 % (31-73); PLATELET COUNT 193 x10^3/uL (140-400); RED BLOOD COUNT 4.32 x10^6/uL (4.30-5.70); RED CELL DISTRIBUTION WIDTH 12.7 % (11.5-14.5); WHITE BLOOD COUNT 5.2 x10^3/uL (4.0-11.0)
[2020-11-01 13:55] LABS: CALCIUM 9.5 mg/dL (8.5-10.1); GFR 73.9; POTASSIUM 3.5 mmol/L (3.5-5.1)
[2020-11-01 14:02] LABS: ALBUMIN 4.2 g/dL (3.4-5.0); ALBUMIN/GLOBULIN RATIO 1.4 (1.0-1.7); MAGNESIUM 2.1 mg/dL (1.8-2.4); TOTAL BILIRUBIN 0.4 mg/dL (0.2-1.0); TOTAL PROTEIN 7.1 g/dL (6.4-8.2)
[2020-11-02] MEDS ORDERED: TRAM50TA PO (08:27)
[2020-11-02] MEDS ORDERED: METO100T5 PO (08:27)
== END 2020-11-01 14:03 | disposition home or self-care (01) ==
LOC: ER 12:12
DX: I10 Essential (primary) hypertension (principal); E11.9 Type 2 diabetes mellitus without complications; Z88.8 Allergy status to other drugs, medicaments and biological substances
CPT/HCPCS: 36415; 80053; 83735; 83880; 84443; 84484; 85025; 93005; 99285-25

== ENCOUNTER → 2020-11-02 | Outpatient (CLI) | payer MEDICARE, OTHER ==
[2020-11-01 13:40] VITALS: BP 200/84
[~2020-11-02] MED LIST changes: +IOHEXOL 180 MG/ML 10 ML VIAL. ONE; +METO100T5 PO; +TRAM50TA PO; +methylPREDNISolone ACETATE 40 MG/ML VIAL. ONE; +methylPREDNISolone ACETATE 80 MG/ML VIAL. ONE
--- NOTE | 2020-11-02 08:53 | PDOC4 ---
PROCEDURE Procedure Patient was consented for lumbar epidural steroid injection. Risks were dis cussed including but not limited to: Bleeding, infection, possibility of epidural hematoma and subsequent neurological compromise, dural puncture, headaches, spinal cord and/or nerve damage, side effects of steroid medication, and poor results regarding pain control. Patient understands and wished to proceed. Procedure is lumbar epidural steroid injection under local anesthetic using sterile prep and drape at the L4-5 level using C-arm fluoroscopic guidance in both AP and lateral views medications injected is 120 mg Depo-Medrol + 10 mL preservative-free normal saline and 2 mL contrast- condition at discharge is stable patient tolerated procedure well had no complications. ALOK KING MD Nov 02, 2020 08:53
--- NOTE | 2020-11-02 08:53 | PDOC ---
Progress Note - Pain Clinic Date of Service: DOS: DATE: 11/02/20 TIME: 08:48 Diagnosis: Dx: Lumbar radiculopathy with lumbar degenerative disease and lumbar spinal stenosis Cervical radiculopathy with cervical degenerative disc disease and cervical spinal stenosis History or Present Illness: HPI: 69-year-old male returns follow-up status post lumbar epidural steroid action x2. Last seen June 22, 2020, patient did very well after his second injection with about 80% improvement for about 2 and half months. Patient reports the pain began to return then about a month and a half ago in the low back and bilateral lower extremities worse on the right than the left but present bilaterally posterior gluteus posterior lateral thigh lateral anterior thighs anterior medial thighs medial lower legs. Patient reports the pain now is a 9 on scale 10 is worst over the past week 7 on average 5 its least is an 8 today patient reports aching tight tingling can be constant worse with walking standing initially was doing much better with distance walking doing household activities working activities travel with greater ease and comfort as well patient reports he been needed awakening from sleep again about once or twice a night. Patient reports no new motor or sensory deficits no new bowel or bladder incontinence or other complaints. Physical Exam: VS: Blood pressure is 123/69 pulse 60 respirations 18 temperature 98.4 F weight is 188 pounds PE: PHYSICAL EXAMINATION: GENERAL: The patient is awake, alert, oriented, appropriate, very pleasant demeanor HEENT: Shows normocephalic, atraumatic. Extraocular movements are intact and symmetrical. NECK: Shows anterior throat supple without palpable lymphadenopathy noted. Swallow reflex symmetrical. CHEST: Shows normal on inspection. Breath sounds are clear bilaterally, no rales or rhonchi. HEART: Shows S1, S2 clear. No murmurs auscultated. ABDOMEN: Soft, nontender, nondistended, obese. No palpable organomegaly is noted. BACK: Shows spine grossly in the midline. Normal-appearing cervical lordotic curvature. There is slightly increased thoracic kyphosis, some minor flattening of the lumbar lordotic curvature. Lumbar paraspinous muscles show symmetrical on inspection, on palpation shows some moderate tenderness diffusely throughout the upper, middle and lower distribution of the paraspinous muscles bilaterally, but without specific trigger points, without radiation of pain. The patient has good rotational motion of the lumbar spine, both laterally as well as extension and flexion without significant difficulty. EXTREMITIES: Lower extremities show deep tendon reflexes 2+ in the patellar and tendo calcaneus tendons. Motor exam is 5 on a scale of 5 with right dorsiflexion, extension, quadriceps and hamstring flexion and 5/5 on the left. Peripheral pulses are 1+ posterior tibial. No peripheral edema is noted bilaterally. Lower extremities are warm and dry to touch, equal in color and appearance. SKIN: Shows warm and dry, good turgor. No edema. No sores, rashes or bruising throughout. Procedure: Procedure: Options were discussed with the patient. Patient chart reviewed his current medication regimen updated current review of systems updated today as well. We will proceed with a third in the series lumbar epidural steroid injection stable fluoroscopic guidance. Risks were discussed including but not limited to: Bleeding, infection, possibility of epidural hematoma and subsequent neurological compromise, dural puncture, headaches, spinal cord and/or nerve damage, side effects of steroid medication, and poor results regarding pain con trol. Patient understands and wished to proceed. Patient will return to clinic in approximate 2 weeks for follow-up, was counseled as to return appointment to fill and side effects to be aware of. Medication Injected: Med Injected: Procedure is lumbar epidural steroid injection under local anesthetic using sterile prep and drape at the L4-5 level using C-arm fluoroscopic guidance in both AP and lateral views medications injected is 120 mg Depo-Medrol + 10 mL preservative-free normal saline and 2 mL contrast- condition at discharge is stable patient tolerated procedure well had no complications. Condition at Discharge: Condition at Discharge: Patient at discharge stable, patient alert procedure well had no complications. ALOK KING MD Nov 02, 2020 08:52
== END | disposition home or self-care (01) ==
LOC: PNCL 08:13
PROVIDERS: ATTEND Anesthesiology
DX: M51.16 Intervertebral disc disorders with radiculopathy, lumbar region (principal); M48.061 Spinal stenosis, lumbar region without neurogenic claudication; M50.10 Cervical disc disorder with radiculopathy, unspecified cervical region; M48.02 Spinal stenosis, cervical region; I10 Essential (primary) hypertension; E78.00 Pure hypercholesterolemia, unspecified; M19.90 Unspecified osteoarthritis, unspecified site; E11.9 Type 2 diabetes mellitus without complications; F41.9 Anxiety disorder, unspecified; Z79.82 Long term (current) use of aspirin; Z79.84 Long term (current) use of oral hypoglycemic drugs; Z79.899 Other long term (current) drug therapy; Z98.890 Other specified postprocedural states; Z82.49 Family history of ischemic heart disease and other diseases of the circulatory system; Z83.3 Family history of diabetes mellitus; Z88.8 Allergy status to other drugs, medicaments and biological substances
CPT/HCPCS: 62323; J1030; J1040; Q9965

== ENCOUNTER → 2020-12-18 | Outpatient (CLI) | payer MEDICARE, OTHER ==
[~2020-12-18] MED LIST changes: -IOHEXOL 180 MG/ML 10 ML VIAL. ONE; +SILD20TA4 PO; -methylPREDNISolone ACETATE 40 MG/ML VIAL. ONE; -methylPREDNISolone ACETATE 80 MG/ML VIAL. ONE
[2020-12-18 15:09] LABS: BASO % 1 % (0-3); EOS # 0.1 x10^3/uL (0.0-0.7); EOS % 2 % (0-3); HEMATOCRIT 37.7 % (39.0-53.0); HEMOGLOBIN 12.8 g/dL (13.0-17.5); LYMPH # 2.1 x10^3/uL (1.0-4.8); LYMPH % 31 % (24-48); MEAN CORPUSCULAR HEMOGLOBIN 32 pg (25-35); MEAN CORPUSCULAR HGB CONC 34 g/dL (31-37); MEAN CORPUSCULAR VOLUME 95 fL (79-100); MONO # 0.5 x10^3/uL (0.0-1.1); MONO % 8 % (0-9); NEUT # 3.9 x10^3/uL (1.8-7.7); NEUT % 58 % (31-73); PLATELET COUNT 173 x10^3/uL (140-400); RED BLOOD COUNT 3.99 x10^6/uL (4.30-5.70); RED CELL DISTRIBUTION WIDTH 12.7 % (11.5-14.5); WHITE BLOOD COUNT 6.7 x10^3/uL (4.0-11.0)
--- NOTE | 2020-12-18 15:12 | EKG ---
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
[2020-12-18 15:18] LABS: ALBUMIN 3.6 g/dL (3.4-5.0); CALCIUM 8.6 mg/dL (8.5-10.1); CREATININE 0.9 mg/dL (0.7-1.3); GFR 83.2; POTASSIUM 3.4 mmol/L (3.5-5.1); PROTHROMBIN TIME PATIENT 12.2 SEC (11.7-14.0)
--- NOTE | 2020-12-18 17:29 | RAD ---
XR CHEST 2V INDICATION: PRE OP RT SHOULDER ON 01/01/21, HX HTN, DIABETES / Spl. Instructions: / History: . COMPARISON STUDY: 02/15/2018. FINDINGS: Lungs: Normal lung volume. No pulmonary mass or consolidation. The tracheobronchial tree and hilar st ructures are normal. Pleura: No pleural effusion or pneumothorax. Heart and Mediastinum: The cardiomediastinal silhouette is normal. Atherosclerosis of the thoracic ao rta. Bones and Soft Tissues: Degenerative changes of the spine. IMPRESSION: No acute cardiopulmonary process. Electronically signed by: Deven Ball MD (12/18/2020 5:27 PM) [id number]
[2020-12-19 01:08] LABS: HEMOGLOBIN A1C 6.5 % (4.8-5.6)
== END ==
LOC: SURGPAT 14:15
PROVIDERS: ATTEND Orthopaedic Surgery
DX: Z01.818 Encounter for other preprocedural examination (principal); M19.011 Primary osteoarthritis, right shoulder; I70.0 Atherosclerosis of aorta
CPT/HCPCS: 36415; 71046; 80048; 82040; 82306; 83036; 85025; 85610; 85651; 85730; 87641; 93005

== ENCOUNTER → 2020-12-28 | Outpatient (CLI) | payer MEDICARE, OTHER ==
[~2020-12-28] MED LIST changes: +OXYC5CAP PO
== END ==
LOC: LAB 13:47
PROVIDERS: ATTEND Orthopaedic Surgery
DX: Z01.812 Encounter for preprocedural laboratory examination (principal); Z20.822 Contact with and (suspected) exposure to COVID-19; M19.011 Primary osteoarthritis, right shoulder
CPT/HCPCS: U0003; U0005

== ENCOUNTER 2021-01-01 11:27 | Observation (INO) | payer MEDICARE, OTHER ==
[~2021-01-01] VITALS: Ht 170.2 cm; Wt 83.9 kg
[~2021-01-01 11:27] MED LIST changes: +ACETAMINOPHEN 500 MG TABLET PO PRN; +GABAPENTIN 300 MG CAPSULE. PO PRN; +HYDROmorphone 2 MG/ML VIAL IVP PRN; +IV RINGERS,LACTATED 1000ML 1,000 ML IV SCH; +MELOXICAM 7.5 MG TABLET PO PRN; +MORPHINE SULFATE 2 MG/ML VIAL. IVP PRN; -OXYC5CAP PO; +PROCHLORPERAZINE 10 MG/2 ML VIAL. IVP PRN; +TRANEXAMIC ACID 1,000 MG in IV NS 50ML -- 1ST BAG INJ ONE; +TRANEXAMIC ACID 1,000 MG in IV NS 50ML -- 2ND BAG INJ ONE; +ceFAZolin 2GM PREMIX 2 GM/50 ML BAG IV ONE; +fentaNYL PF VIAL 100 MCG/2 ML VIAL IVP PRN
[2021-01-01] MEDS ORDERED: fentaNYL PF VIAL 100 MCG/2 ML VIAL ONE (12:01)
[2021-01-01] MEDS ORDERED: NEOSTIGMINE METHYLSULFATE 5 MG/5 ML SYRINGE. ONE (12:01)
[2021-01-01] MEDS ORDERED: SEVOFLURANE > 120 MINUTES. IH ONE ×2 (12:01→17:12)
[2021-01-01] MEDS ORDERED: ROCURONIUM 50 MG/5 ML VIAL. ONE ×2 (12:01→14:54)
[2021-01-01] MEDS ORDERED: GLYCOPYRROLATE 1 MG/5 ML VIAL. ONE (12:01)
[2021-01-01] MEDS ORDERED: ONDANSETRON PF 4 MG/2 ML VIAL. ONE (12:02)
[2021-01-01] MEDS ORDERED: LIDOCAINE 2% PF 5 ML VIAL. ONE (12:02)
[2021-01-01] MEDS ORDERED: DEXAMETHASONE SOD PHOS 4 MG/ML VIAL ONE (12:02)
[2021-01-01] MEDS ORDERED: PROPOFOL 10 MG/ML (20ML) VIAL. IV ONE (12:02)
[2021-01-01] MEDS: INSULIN LISPRO 100 UNIT/ML 3ML VIAL for OP,RR ONLY. SQ PRN ×2 (12:45→17:06)
[2021-01-01] MEDS ORDERED: MIDAZOLAM HCL/PF 2 MG/2 ML VIAL. ONE (13:11)
[2021-01-01] MEDS ORDERED: LIDOCAINE 1% PF 2 ML VIAL. ONE (13:13)
[2021-01-01] MEDS ORDERED: BUPIVACAINE MPF 0.5% 30 ML VIAL. ONE (13:13)
[2021-01-01] MEDS ORDERED: PHENYLEPHRINE in 0.9% NACL PF 1 MG/10 ML SYRINGE. IV ONE ×2 (14:34→14:36)
[2021-01-01] MEDS ORDERED: PHENYLEPHRINE 10 MG/ML VIAL. ONE (14:34)
[2021-01-01] MEDS ORDERED: ePHEDrine PF IN SALINE 50 MG/10 ML SYRINGE. IV ONE (14:36)
[2021-01-01] MEDS ORDERED: VANCOMYCIN 1 GM VIAL. ONE (16:26)
[2021-01-01] MEDS ORDERED: INSULIN LISPRO 100 UNIT/ML 3ML VIAL for OP,RR ONLY. SQ ONE ×2 (17:10)
[2021-01-01] MEDS ORDERED: oxyCODONE/APAP 5/325 1 TAB TABLET PO PRN (17:45)
[2021-01-01] MEDS: IV DEXTROSE 5 %-0.45 % NACL 1,000 ML IV SCH (17:45)
[2021-01-01] MEDS ORDERED: oxyCODONE/APAP 7.5/325 1 TAB TABLET PO PRN (17:45)
[2021-01-01] MEDS ORDERED: HYDROmorphone 2 MG/ML VIAL IV PRN (17:45)
[2021-01-01] MEDS ORDERED: traMADol 50 MG TABLET PO PRN ×2 (17:45)
[2021-01-01] MEDS ORDERED: DEXTROSE 50% 25 GM / 50ML DISP.SYRIN. IV PRN (17:45)
[2021-01-01] MEDS ORDERED: ACETAMINOPHEN 325 MG TABLET. PO PRN (17:45)
[2021-01-01] MEDS ORDERED: 0.9 % SODIUM CHLORIDE 10 ML DISP.SYRIN. IV PRN (17:45)
[2021-01-01] MEDS ORDERED: PROCHLORPERAZINE 5 MG TABLET. PO PRN (17:45)
[2021-01-01] MEDS ORDERED: CALCIUM CARBONATE 500 MG TAB.CHEW PO PRN (17:45)
[2021-01-01] MEDS ORDERED: IV NORMAL SALINE 1000ML BAG 1,000 ML IV SCH (17:45)
[2021-01-01] MEDS ORDERED: ZOLPIDEM 5 MG TABLET. PO PRN (17:45)
[2021-01-01] MEDS ORDERED: NALOXONE 0.4 MG/ML VIAL. IV PRN (17:45)
[2021-01-01] MEDS ORDERED: HYDROcodone/APAP 10/325 1 TAB TABLET PO PRN (17:45)
--- NOTE | 2021-01-01 17:55 | PDOC4 ---
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 Postoperative diagnosis: Same with poor rotator cuff tissue quality and degeneration of the humeral head and glenoid with significant superior labral degeneration Operative procedure: Right reverse shoulder arthroplasty, biceps tenodesis Surgeon: Ken [employer] Actuary: Enrico camarillo assist Anesthesia: General plus scalene block Estimated blood loss: 150 cc Complications: None Operative indications: Please see my preoperative clinic note for detailed operative indications and note that he continues to have pain with activities and at night and difficulty with strength maneuvers or lifting his arm away from his side. He continues to have clinical findings of weakness and pain and concern for rotator cuff insufficiency. We had talked about possibility of total shoulder arthroplasty and if the rotator cuff was insufficient, the alternate plan of reverse shoulder arthroplasty procedure including the possibility of infection nerve or blood vessel damage instability premature wear or loosening medical or other anesthetic complications among others he acknowledges the possible risks and agrees to proceed with surgical evaluation and treatment. Operative text: Patient was identified procedure verified patient placed in the beachchair position on the operating table with the T-Max headrest. After adequate amounts of general anesthesia and a pre-existing scalene block were obtained he was placed in the beachchair position using the T-Max headrest and all bony prominences were well-padded. The right shoulder was prepped and draped in standard sterile fashion and after timeout was performed patient procedure identified and verified a deltopectoral approach was performed subscapularis was divided from the anterior capsule and tagged and the rotator cuff was noted to be insufficient and biceps long head intra-articular was observed to be split and frayed and with the decision to proceed with reverse shoulder arthroplasty a deltopectoral approach was carried out deltoid was elevated and the distal deltoid was bluntly elevated off the humeral insertion to avoid traction injury during the procedure. Humerus was exposed and reamed to a size 12 mm stem and a 10 degree retroverted cut was carried out and reaming proximally carried out preparation for a Porsche 130 mm trial with stem length 12 mm stem diameter. Biceps was tenodesed with multiple sutures at the low portion of the bicipital groove, glenoid was then exposed capsular release was performed. A guidewire was placed in slight declination low centrally in the glenoid and any residual labrum was previously removed and reaming was carried out down to bleeding bone inferiorly sclerotic superior bone was drilled to improve the blood supply and a trabecular metal glenoid baseplate was impacted and screws were placed inferiorly in the scapular spine superiorly to the base of the coracoid with excellent fixation and were locked. Placement of the 36 mm glenosphere which was then impacted to engage the Cote taper and trial fitting carried out with a standard +3 mm offset 36 mm trial liner. Full range of motion excellent stability were obtained and trial components were removed. Irrigation carried out normal saline solution with pulse lavage and a reverse shoulder system 12 mm nonporous humeral stem 130 mm stem length was assembled with a 36 mm +3 offset polyethylene liner and was impacted in proper version with excellent stability reduced and found to have equivalent range of motion and stability. Superior aspect of the pectoralis was repaired and partial subscapularis repair carried out with max braid suture to avoid any excessive tension. Thorough irrigation again carried out with dilute Betadine lavage followed by normal saline solution 1 g vancomycin was placed in the joint closure accomplished with buried Vicryl suture skin closure with subcuticular strata fix Monocryl suture and sterile dressings were applied. Patient was placed in a sling returned to recovery room in stable condition having tolerated the procedure well. Enrico camarillo assist was present for the procedure assisted in the patient positioning prepping draping retraction closure and dressings RONEN YOUNG MD Jan 01, 2021 17:55
--- NOTE | 2021-01-01 18:03 | RAD ---
Exam: Right shoulder 2 views INDICATION: Postop TECHNIQUE: Frontal and lateral views of the right shoulder Comparisons: 11/12/2020 FINDINGS: Right shoulder arthroplasty changes are noted. Small amount of air noted in the adjacent soft tissues . Bone mineralization is normal. Joint spaces are otherwise well-maintained. IMPRESSION: Right shoulder arthroplasty changes. Electronically signed by: Alla Liu MD (01/01/2021 6:00 PM) ALEXEY
[2021-01-01 18:04] VITALS: BP 111/63
[2021-01-01 18:22] VITALS: BP 151/50
[2021-01-01] MEDS ORDERED: SILDENAFIL CITRATE 20 MG TABLET. PO SCH (18:30)
--- NOTE | 2021-01-01 18:36 | NUR ---
Patient arrived around 1800 from PACU in a bed. Sling in place on RUE. Rebecca dressing covered with ABDs intact on right shoulder. Patient numb due to peripheral block in shoulder but able to move his fingers. He is on room air. Vital signs stable. IV infusing properly. Panchito aguila and SCDs are on the patient at this time. No concerns noted from patient other then the fact he is "thirsty and hungry". Will continue to monitor.
[2021-01-01 19:30] VITALS: BP 130/73
[2021-01-01 20:30] VITALS: BP 132/74
[2021-01-01] MEDS: CELECOXIB 100 MG CAPSULE. PO SCH (20:41)
[2021-01-01] MEDS ORDERED: TAMSULOSIN 0.4 MG CAP.ER.24H. PO SCH (21:00)
[2021-01-01] MEDS ORDERED: EZETIMIBE 10 MG TABLET. PO SCH (21:00)
[2021-01-01] MEDS ORDERED: ATORVASTATIN CALCIUM 40 MG TABLET. PO SCH (21:00)
[2021-01-01 21:30] VITALS: BP 130/73
[2021-01-01 23:00] VITALS: BP 122/68
[2021-01-02 03:22] VITALS: BP 136/74
[2021-01-02] MEDS: IV DEXTROSE 5 %-0.45 % NACL 1,000 ML IV SCH (03:45)
[2021-01-02] MEDS ORDERED: MAGNESIUM HYDROXIDE 2,400 MG/30 ML ORAL.SUSP. PO PRN (06:00)
[2021-01-02 06:34] VITALS: BP 121/66
[2021-01-02] MEDS: CELECOXIB 100 MG CAPSULE. PO SCH (08:18)
[2021-01-02] MEDS: metFORMIN 500 MG TABLET PO SCH ×3 (08:18→17:07)
[2021-01-02] MEDS: FERROUS SULFATE 325 MG TABLET. PO SCH ×2 (08:18→08:27)
[2021-01-02 08:20] VITALS: BP 124/68
[2021-01-02] MEDS ORDERED: MULTIVITAMIN with MINERAL TABLET. PO SCH (09:00)
[2021-01-02] MEDS ORDERED: METOPROLOL SUCC 24HR ER 100 MG TAB.ER.24H. PO SCH (09:00)
[2021-01-02] MEDS ORDERED: LISINOPRIL 20 MG TABLET PO SCH (09:00)
[2021-01-02] MEDS ORDERED: CHLORTHALIDONE 25 MG TABLET. PO SCH (09:00)
--- NOTE | 2021-01-02 10:00 | NUR ---
Pt up at maria fernanda in room. No c/o at this time. Right arm in sling. Cont. monitor.
[2021-01-02 11:02] VITALS: BP 114/62
[2021-01-02 15:20] VITALS: BP 131/56
[2021-01-02] MEDS ORDERED: BISACODYL 10 MG SUPP.RECT. PR PRN (16:00)
[2021-01-02] MEDS ORDERED: TRAM50TA PO (16:33)
[2021-01-02] MEDS ORDERED: OXYC5CAP PO (16:33)
--- NOTE | 2021-01-02 16:36 | DISCH ---
DISCHARGE INSTRUCTIONS Condition on Discharge Condition on Discharge: Stable Activity After Discharge Activity Instructions for Disc: Other, see below (No reaching behind back for 2 months postop) Bathing Instructions: Shower-keep dressing dry, No Tub Bath until see Lifting Instructions after Dis: No heavy lifting, No pulling or pushing, Do not lift >10 pounds Exercise Instruction after Dis: Exercise per therapy, Progress as tolerated Driving Instructions after Dis: Do not drive Weight Bearing Status after Di: No restrictions Diet after Discharge Diet after Discharge: Diabetic No Calorie Level Diet Texture: Regular Liquid Texture: Thin Liquid Swallowing Supervision: None needed Wound Incision Care Wound/Incision Care: Ice to area for comfort, Keep wound elevated, Do not change dressing Contacting the DRPaula after DC Call your doctor for: Concerns you may have Follow-Up Follow Up With: Follow up on 01/16 at 1030 am [phone] Treatment/Equipment after DC Adaptive Equipment Issued: None RONEN YOUNG MD Jan 02, 2021 16:35
--- NOTE | 2021-01-02 17:20 | NUR ---
Discharge instructions given with prescriptions. Answered questions and concerns. Verbalized understanding. Pt discharged home accompanied by brother. Escorted out by w/c.
== END 2021-01-02 17:20 | disposition home or self-care, planned readmission (81) ==
LOC: SURG 11:27 → 4 SOUTHEST 17:45
PROVIDERS: ADMIT Orthopaedic Surgery; ATTEND Orthopaedic Surgery
DX: M19.011 Primary osteoarthritis, right shoulder (principal); M75.21 Bicipital tendinitis, right shoulder; Z79.899 Other long term (current) drug therapy
CPT/HCPCS: 23472; 36415; 73030; 82962; 86850; 86900; 86901; 96365; 96366; 96376; 97110; 97116; 97162; A4565; A4928; A4930; A6253; A6550; C1776; G0378; G0379; J0690; J1100; J1815; J2250; J2370; J2405; J2704; J3010; J3370; J3490; 88304; 88311; A4222; A4322; J2710

== ENCOUNTER → 2021-02-14 | Outpatient (CLI) | payer MEDICARE, OTHER ==
[~2021-02-14] MED LIST changes: -ACETAMINOPHEN 500 MG TABLET PO PRN; -GABAPENTIN 300 MG CAPSULE. PO PRN; -HYDROmorphone 2 MG/ML VIAL IVP PRN; -IV RINGERS,LACTATED 1000ML 1,000 ML IV SCH; -MELOXICAM 7.5 MG TABLET PO PRN; -MORPHINE SULFATE 2 MG/ML VIAL. IVP PRN; +OXYC5CAP PO; -PROCHLORPERAZINE 10 MG/2 ML VIAL. IVP PRN; -TRANEXAMIC ACID 1,000 MG in IV NS 50ML -- 1ST BAG INJ ONE; -TRANEXAMIC ACID 1,000 MG in IV NS 50ML -- 2ND BAG INJ ONE; -ceFAZolin 2GM PREMIX 2 GM/50 ML BAG IV ONE; -fentaNYL PF VIAL 100 MCG/2 ML VIAL IVP PRN
--- NOTE | 2021-02-14 16:51 | CARD ---
MR#: [id number] Date of Study: 02/14/2021 Ordering Physician: KRIS SONG, Referring Physician: KRIS SONG, Tech: Tana Holm [facility] APPROVED REPORT EXAM: Two-dimensional and M-mode echocardiogram with Doppler and color Doppler. Other Information Quality : GoodHR: 55bpm Rhythm : NSR INDICATION Atrial Fibrillation RISK FACTORS Hypertension 2D DIMENSIONS RVDd3.1 (2.9-3.5cm)Left Atrium(2D)3.7 (1.6-4.0cm) IVSd0.9 (0.7-1.1cm)Aortic Root(2D)2.9 (2.0-3.7cm) LVDd4.5 (3.9-5.9cm)LVOT Diameter1.9 (1.8-2.4cm) PWd1.2 (0.7-1.1cm)LVDs3.1 (2.5-4.0cm) FS (%) 32.3 %SV56.9 ml LVEF(%)60.7 (>50%) Aortic Valve AoV Peak Reinaldo.156.7cm/Dee Peak GR.9.8mmHg LVOT Peak Reinaldo.103.5cm/sAVA (VMAX)1.91cm2 Mitral Valve MV E Tdtipshf51.0cm/sMV DECEL FIHJ096xa MV A Utblnodk65.3cm/sE/A Ratio1.0 Pulmonary Valve PV Peak Ylayekvs11.8cm/s Tricuspid Valve TR P. Gimduduz626pr/sRAP [id number] TR Peak Gr.76khQdECKN67xfKy Pulmonary Vein S1 Mzszaxxg85.6cm/sD2 Hagbegbd03.4cm/s PVa [id number] LEFT VENTRICLE The left ventricle is normal size. There is normal left ventricular wall thickness. The left ventricu lar systolic function is normal and the ejection fraction is within normal range. EF 55-60% No region al wall motion abnormalities noted. The left ventricular diastolic function is normal. No left ventri delgado thrombus noted on this study. There is no ventricular septal defect visualized. There is no left ventricular aneurysm. There is no mass noted in the left ventricle. RIGHT VENTRICLE The right ventricle is normal size. There is normal right ventricular wall thickness. The right ventr icular systolic function is normal. ATRIA The left atrium size is normal. The right atrium size is normal. The interatrial septum is intact wit h no evidence for an atrial septal defect or patent foramen ovale as noted on 2-D or Doppler imaging. AORTIC VALVE The aortic valve is normal in structure and function. Doppler and Color Flow revealed trace to mild a ortic regurgitation. There is no aortic valvular stenosis. There is no aortic valvular vegetation. MITRAL VALVE The mitral valve is normal in structure and function. There is no evidence of mitral valve prolapse. There is no mitral valve stenosis. Doppler and Color-flow revealed trace mitral regurgitation. TRICUSPID VALVE The tricuspid valve is normal in structure and function. Doppler and Color Flow revealed mild tricusp id regurgitation. PAP 39 mmHg. There is no tricuspid valve prolapse or vegetation. There is no tricus pid valve stenosis. PULMONIC VALVE The pulmonary valve is normal in structure and function. There is no pulmonic valvular regurgitation. There is no pulmonic valvular stenosis. GREAT VESSELS The aortic root is normal in size. The ascending aorta is normal in size. The pulmonary artery is nor mal. The IVC is normal in size and collapses >50% with inspiration. PERICARDIAL EFFUSION There is no pleural effusion. The pericardium appears normal. Critical Notification Critical Value: No <Conclusion> The left ventricle is normal size. The left ventricular systolic function is normal and the ejection fraction is within normal range. EF 55-60% Doppler and Color Flow revealed trace to mild aortic regurgitation. There is no aortic valvular stenosis. Doppler and Color-flow revealed trace mitral regurgitation. Doppler and Color Flow revealed mild tricuspid regurgitation. PAP 39 mmHg. Signed by : lElis Dawn MD Electronically Approved : 02/14/2021 16:50:50
== END ==
LOC: ECHO 13:14
PROVIDERS: ATTEND Internal Medicine Cardiovascular Disease
DX: I07.1 Rheumatic tricuspid insufficiency (principal); I10 Essential (primary) hypertension
CPT/HCPCS: 93306

== ENCOUNTER → 2021-02-15 | Outpatient (CLI) | payer MEDICARE, OTHER ==
[~2021-02-15] MED LIST changes: +IOHEXOL 180 MG/ML 10 ML VIAL. ONE; +methylPREDNISolone ACETATE 40 MG/ML VIAL. ONE; +methylPREDNISolone ACETATE 80 MG/ML VIAL. ONE
--- NOTE | 2021-02-15 09:41 | PDOC ---
Progress Note - Pain Clinic Date of Service: DOS: DATE: 02/15/21 TIME: 09:38 Diagnosis: Dx: Lumbar radiculopathy with lumbar degenerative disease and lumbar spinal stenosis Cervical radiculopathy with cervical degenerative disc disease and cervical spinal stenosis History or Present Illness: HPI: 70-year-old male returns for follow-up status post previous lumbar epidural steroid injections most recently October 2020. Patient reports 80% improvement after the injection with the low back pain still has some pain in the left lower extremity however radiating posterior gluteus lateral thigh anterior thigh medial thigh posterior calf to the ankle worse with walking and standing patient reports otherwise doing much better with the low back pain has been increase his activity distance walking household activities work activities travel with greater ease and sleeping better , patient reports still is not awakening from sleep at night. Patient reports no new motor or sensory deficits, no new bowel or bladder incontinence. Patient rates the pain as 8 with a scale of 10 at its worst 6 on average to its least is a 3 today. Patient describes the pain as tight in the back and radiating shooting in the left leg. Physical Exam: VS: Blood pressure is 134/73 pulse 61 respirations 18 temperature 98.2 F height 5 feet 8 inches weight 181 pounds PE: PHYSICAL EXAMINATION: GENERAL: The patient is awake, alert, oriented, appropriate, very pleasant demeanor HEENT: Shows normocephalic, atraumatic. Extraocular movements are intact and symmetrical. Oral cavity: Mucous membranes moist and pink. Dentition is intact. NECK: Shows anterior throat supple without palpable lymphadenopathy noted. Swallow reflex symmetrical. CHEST: Shows normal on inspection. Breath sounds are clear bilaterally, no rales or rhonchi auscultated. HEART: Shows S1, S2 clear. No murmurs auscultated. ABDOMEN: Soft, nontender, nondistended, obese. No palpable organomegaly is noted. BACK: Shows spine grossly in the midline. Normal-appearing cervical lordotic curvature. There is slightly increased thoracic kyphosis, some minor flattening of the lumbar lordotic curvature. Lumbar paraspinous muscles show symmetrical on inspection, on palpation shows some moderate tenderness diffusely throughout the upper, middle and lower distribution of the paraspinous muscles without specific trigger points, without radiation of pain. The patient has good rotational motion of the lumbar spine, both laterally as well as extension and flexion without significant difficulty. EXTREMITIES: Lower extremities show deep tendon reflexes 2+ in the patellar and tendo calcaneus tendons. Motor exam is 5 on a scale of 5 with right dorsiflexion, extension, quadriceps and hamstring flexion and 5/5 on the left. Peripheral pulses are 1+ posterior tibial. No peripheral edema is noted bilaterally. Lower extremities are warm and dry to touch, equal in color and appearance. SKIN: Shows warm and dry, good turgor. No edema. No sores, rashes or bruising throughout. Procedure: Procedure: Options were discussed with the patient. Patient chart was reviewed his his current medication regimen updated current review of systems updated today as well. We will proceed with a first in the series lumbar epidural steroid injection stable fluoroscopic guidance. Risks were discussed including but not limited to: Bleeding, infection, possibility of epidural hematoma and subsequent neurological compromise, dural puncture, headaches, spinal cord and/or nerve damage, side effects of steroid medication, and poor results regarding pain control. Patient understands and wished to proceed. Patient return to the clinic in approximate 2 weeks for follow-up, was counseled as return appointment activity level and side effects to be aware of. Medication Injected: Med Injected: Procedure is lumbar epidural steroid injection under local anesthetic using sterile prep and drape at the L4-5 level using C-arm fluoroscopic guidance in both AP and lateral views medications injected is 120 mg Depo-Medrol +10mL preservative-free normal saline and 2 mL contrast- condition at discharge is stable patient tolerated procedure well had no complications. Condition at Discharge: Condition at Discharge: Condition at discharge stable, patient already procedure well and had no compl ications. ALOK KING MD Feb 15, 2021 09:41
--- NOTE | 2021-02-15 09:42 | PDOC4 ---
PROCEDURE Procedure Patient was consented for lumbar epidural steroid injection. Risks were dis cussed including but not limited to: Bleeding, infection, possibility of epidural hematoma and subsequent neurological compromise, dural puncture, headaches, spinal cord and/or nerve damage, side effects of steroid medication, and poor results regarding pain control. Patient understands and wished to proceed. Procedure is lumbar epidural steroid injection under local anesthetic using sterile prep and drape at the L4-5 level using C-arm fluoroscopic guidance in both AP and lateral views medications injected is 120 mg Depo-Medrol +10mL preservative-free normal saline and 2 mL contrast- condition at discharge is stable patient tolerated procedure well had no complications. ALOK KING MD Feb 15, 2021 09:41
== END | disposition home or self-care (01) ==
LOC: PNCL 08:25
PROVIDERS: ATTEND Anesthesiology
DX: M51.16 Intervertebral disc disorders with radiculopathy, lumbar region (principal); M48.061 Spinal stenosis, lumbar region without neurogenic claudication; M50.10 Cervical disc disorder with radiculopathy, unspecified cervical region; M48.02 Spinal stenosis, cervical region; I25.10 Atherosclerotic heart disease of native coronary artery without angina pectoris; I10 Essential (primary) hypertension; E78.00 Pure hypercholesterolemia, unspecified; N40.0 Benign prostatic hyperplasia without lower urinary tract symptoms; M19.90 Unspecified osteoarthritis, unspecified site; K21.9 Gastro-esophageal reflux disease without esophagitis; E11.9 Type 2 diabetes mellitus without complications; G47.30 Sleep apnea, unspecified; F41.9 Anxiety disorder, unspecified; Z79.899 Other long term (current) drug therapy; Z98.890 Other specified postprocedural states; Z79.82 Long term (current) use of aspirin; Z79.84 Long term (current) use of oral hypoglycemic drugs; Z88.8 Allergy status to other drugs, medicaments and biological substances
CPT/HCPCS: 62323; J1030; J1040; Q9965

== ENCOUNTER 2021-04-11 03:15 | Emergency (ER) | payer MEDICARE, OTHER ==
[~2021-04-11] VITALS: Ht 172.7 cm; Wt 86.3 kg
[~2021-04-11 03:15] MED LIST changes: -IOHEXOL 180 MG/ML 10 ML VIAL. ONE; -methylPREDNISolone ACETATE 40 MG/ML VIAL. ONE; -methylPREDNISolone ACETATE 80 MG/ML VIAL. ONE
[2021-04-11 03:27] VITALS: BP 144/79
== END 2021-04-11 03:37 | disposition left against medical advice (07) ==
LOC: ER 03:15
DX: I10 Essential (primary) hypertension (principal); Z53.21 Procedure and treatment not carried out due to patient leaving prior to being seen by health care provider

== ENCOUNTER → 2021-07-25 | Outpatient (CLI) | payer MEDICARE, OTHER ==
[~2021-07-25] MED LIST changes: +IOHEXOL 180 MG/ML 10 ML VIAL. ONE; +methylPREDNISolone ACETATE 40 MG/ML VIAL. ONE; +methylPREDNISolone ACETATE 80 MG/ML VIAL. ONE
--- NOTE | 2021-07-25 10:45 | PDOC ---
Progress Note - Pain Clinic Date of Service: DOS: DATE: 07/25/21 TIME: 10:42 Diagnosis: Dx: Lumbar radiculopathy with lumbar degenerative disease and lumbar spinal stenosis Cervical radiculopathy with cervical degenerative disease and cervical spinal stenosis History or Present Illness: HPI: 70-year-old male returns for follow-up status post lumbar epidural steroid injection last seen February 15, 2021. Patient reports about 80% to 90% better for about 4 months with the low back and left lower extremity pain patient reports h as new pain in the left knee which is significantly more noticeable than previously, but the pain is in the low back as well as the left lower extremity posterior gluteus lateral thigh anterior thigh medial thigh on the left side to the knee and some into the medial lower leg below the knee as well as worse with walking standing changing positions better with sitting or lying down describes as aching and sharp and dull in the back shooting in the leg can be constant aching with standing or walking patient reports is an 8 on scale 10 is worst average and a 6 at its least is an 8 today. Patient reports generally better with laying down does not awaken her from sleep and sitting is much more comfortable as well. Patient reports no bowel or bladder incontinence. Physical Exam: VS: Blood pressure is 143/76 pulse 63 respirations 18 temperature 98.3 degrees F weight is 185 pounds. PE: PHYSICAL EXAMINATION: GENERAL: The patient is awake, alert, oriented, appropriate, very pleasant in demeanor HEENT: Shows normocephalic, atraumatic. Extraocular movements are intact and symmetrical. Oral cavity: Mucous membranes moist and pink. Dentition is intact. NECK: Shows anterior throat supple without palpable lymphadenopathy noted. Swallow reflex symmetrical. CHEST: Shows normal on inspection. Breath sounds are clear bilaterally, no rales rhonchi wheezes auscultated. HEART: Shows S1, S2 clear. No murmurs auscultated. ABDOMEN: Soft, nontender, nondistended, obese. No palpable organomegaly is noted. No rebound or guarding demonstrated. BACK: Shows spine grossly in the midline. Normal-appearing cervical lordotic curvature. There is slightly increased thoracic kyphosis, some flattening of the lumbar lordotic curvature. Lumbar paraspinous muscles show symmetrical on inspection, on palpation shows some moderate tenderness diffusely throughout the upper, middle and lower distribution of the paraspinous muscles bilaterally, but without specific trigger points, without radiation of pain. The patient has good rotational motion of the lumbar spine, both laterally as well as extension and flexion without significant difficulty. EXTREMITIES: Lower extremities show deep tendon reflexes 2+ in the patellar and tendo calcaneus tendons. Motor exam is 5 on a scale of 5 with right dorsiflexion, extension, quadriceps and hamstring flexion and 5/5 on the left. Peripheral pulses are 1+ posterior tibial. No peripheral edema is noted bilaterally. Lower extremities are warm and dry to touch, equal in color and appearance. SKIN: Shows warm and dry, good turgor. No edema. No sores, rashes or bruising throughout. Procedure: Procedure: Options discussed with patient. Patient chart reviewed his current medication regimen updated current review of systems updated today as well. We will proceed with a lumbar epidural steroid injection today with fluoroscopic guidance. Risks were discussed including but not limited to: Bleeding, infection, possibility of epidural hematoma and subsequent neurological compromise, dural puncture, headaches, spinal cord and/or nerve damage, side effects of steroid medication, and poor results regarding pain control. Patient understands and wished to proceed. Patient return to the clinic in approximate 2 weeks for follow-up, was counseled return appointment, activity level, and side effect to be aware of. Medication Injected: Med Injected: Procedure is lumbar epidural steroid injection under local anesthetic using sterile prep and drape at the L4-5 level using C-arm fluoroscopic guidance in both AP and lateral views medications injected is 120 mg Depo-Medrol +10mL preservative-free normal saline and 2 mL contrast- condition at discharge is stable patient tolerated procedure well had no complications. Condition at Discharge: Condition at Discharge: Condition at discharge stable, patient already procedure well and had no complications. ALOK KING MD Jul 25, 2021 10:45
--- NOTE | 2021-07-25 10:46 | PDOC4 ---
Procedure Note: ICD 10 Code: ICD 10 Code: M54.16 M51.36 M4 8.06 Procedure Note: Patient was consented for lumbar epidural steroid injection with fluoroscopic guidance. Risks were discussed including but not limited to: Bleeding, infection, possibility of epidural hematoma and subsequent neurological compromise, dural puncture, headaches, spinal cord and/or nerve damage, side effects of steroid medication, and poor results regarding pain control. Patient understands and wished to proceed. Procedure is lumbar epidural steroid injection under local anesthetic using lona rile prep and drape at the L4-5 level using C-arm fluoroscopic guidance in both AP and lateral views medications injected is 120 mg Depo-Medrol +10mL preservative-free normal saline and 2 mL contrast- condition at discharge is stable patient tolerated procedure well had no complications. ALOK KING MD Jul 25, 2021 10:46
== END | disposition home or self-care (01) ==
LOC: PNCL 09:17
PROVIDERS: ATTEND Anesthesiology
DX: M51.16 Intervertebral disc disorders with radiculopathy, lumbar region (principal); M48.061 Spinal stenosis, lumbar region without neurogenic claudication; M50.10 Cervical disc disorder with radiculopathy, unspecified cervical region; M48.02 Spinal stenosis, cervical region; I25.10 Atherosclerotic heart disease of native coronary artery without angina pectoris; I10 Essential (primary) hypertension; E78.00 Pure hypercholesterolemia, unspecified; G47.30 Sleep apnea, unspecified; M19.90 Unspecified osteoarthritis, unspecified site; E11.9 Type 2 diabetes mellitus without complications; F41.9 Anxiety disorder, unspecified; Z79.82 Long term (current) use of aspirin; Z79.899 Other long term (current) drug therapy; Z98.890 Other specified postprocedural states; Z88.8 Allergy status to other drugs, medicaments and biological substances
CPT/HCPCS: 62323; J1030; J1040; Q9965

== ENCOUNTER → 2021-10-11 | Outpatient (CLI) | payer MEDICARE, OTHER ==
[~2021-10-11] MED LIST changes: -methylPREDNISolone ACETATE 40 MG/ML VIAL. ONE
--- NOTE | 2021-10-11 09:41 | PDOC ---
Progress Note - Pain Clinic Date of Service: DOS: DATE: 10/11/21 TIME: 09:37 Diagnosis: Dx: Lumbar radiculopathy with lumbar degenerative disc disease and lumbar spinal stenosis Cervical radiculopathy with cervical degenerative disease and cervical spinal stenosis Osteoarthritis left knee History or Present Illness: HPI: 70-year-old male returns for follow-up status post lumbar epidural steroid in lee[place] last seen July 25, 2021 patient did very well near 80% improvement after the injection pain in the low back and left lower extremity patient reports he was increase his distance walking doing household activities work activities much greater ease and comfort travel with greater ease and sleeping much better patient reports still generally does not awaken from sleep with pain in his low back extremity. The right patient reports significant pain however today in the right knee which is worse with weightbearing standing and walking patient has had a Synvisc injection with his orthopedist but now this feels different to him as he has pain in the posterior aspect of the knee as well as medial and lateral again only worse with weightbearing. Patient reports no loss of function no stumbling no motor loss of lower extremity but much more fatigued on the left side compared to the right with walking ambulating and getting in and out of his car he has to lift up the left leg at times to help it because it is weaker. Patient reports the pain is aching in the back tight in the back tingling in the legs in the left posterior gluteus lateral thigh anterior thigh medial thigh medial lower leg and both of the calves has some tingling as well. Patient is type II diabetic and we discussed the importance of him watching his blood sugars he reports that he checks these at least 2-3 times a week and we encouraged him to do that as well after today's procedure as it may be elevated for few days following the injection. Patient understands and will follow this closely. Patient rates his pain as a nine on scale 10 is worst over the past week eight on average four at its least and is a five today. Physical Exam: VS: Blood pressure 145/82 pulse 57 respirations 18 temperature was 1.8 F weight is 194 pounds. PE: PHYSICAL EXAMINATION: GENERAL: The patient is awake, alert, oriented, appropriate, very pleasant in demeanor HEENT: Shows normocephalic, atraumatic. Extraocular movements are intact and symmetrical. Oral cavity: Mucous membranes moist and pink. Dentition is intact. NECK: Shows anterior throat supple without palpable lymphadenopathy noted. Swallow reflex symmetrical. CHEST: Shows normal on inspection. Breath sounds are clear bilaterally, distant but no rales or rhonchi. HEART: Shows S1, S2 clear. No murmurs auscultated. ABDOMEN: Soft, nontender, nondistended. No palpable organomegaly is noted. BACK: Shows spine grossly in the midline. Normal-appearing cervical lordotic curvature. There is mildly increased thoracic kyphosis, some flattening of the lumbar lordotic curvature. Lumbar paraspinous muscles show symmetrical on inspection, on palpation shows some moderate tenderness diffusely throughout the upper, middle and lower distribution of the paraspinous muscles without specific trigger points, without radiation of pain. The patient has good rotational motion of the lumbar spine, both laterally as well as extension and flexion without significant difficulty. No tenderness over the spinous processes, sacrum or sacroiliac regions. EXTREMITIES: Lower extremities show deep tendon reflexes 2+ in the patellar and tendo calcaneus tendons. Motor exam is five on a scale of 5 with right dorsiflexion, extension, quadriceps and hamstring flexion and four/5 on the left. Peripheral pulses are 1+ posterior tibial. No peripheral edema is noted bilaterally. Lower extremities are warm and dry to touch, equal in color and appearance. SKIN: Shows warm and dry, good turgor. No edema. No sores, rashes or bruising throughout. Procedure: Procedure: Options discussed with the patient. Patient's old chart was reviewed his current medication regimen updated current review of systems updated today as well. We will proceed with a lumbar epidural steroid injection today with fluoroscopic guidance. Risks were discussed including but not limited to: Bleeding, infection, possibility of epidural hematoma and subsequent neurological compromise, dural puncture, headaches, spinal cord and/or nerve damage, side effects of steroid medication, and poor results regarding pain control. Patient understands and wished to proceed. Patient will return to the clinic in approximately 2 weeks for follow-up, was counseled as to return appointment, activity level, and side effect to be aware of. Medication Injected: Med Injected: Procedure is lumbar epidural steroid injection under local anesthetic using sterile prep and drape at the L4-5 level using C-arm fluoroscopic guidance in both AP and lateral views medications injected is 120 mg Depo-Medrol +10mL preservative-free normal saline and 2 mL contrast- condition at discharge is stable patient tolerated procedure well had no complications. Condition at Discharge: Condition at Discharge: Condition at discharge stable, patient tolerated the procedure well and had no complications. ALOK KING MD Oct 11, 2021 09:41
--- NOTE | 2021-10-11 09:42 | PDOC4 ---
Procedure Note: ICD 10 Code: ICD 10 Code: M54.16 M51.36 M4 8.06 Procedure Note: Patient was consented for lumbar epidural steroid injection fluoroscopic guidance. Risks were discussed including but not limited to: Bleeding, infection, possibility of epidural hematoma and subsequent neurological compromise, dural puncture, headaches, spinal cord and/or nerve damage, side effects of steroid medication, and poor results regarding pain control. Patient understands and wished to proceed. Procedure is lumbar epidural steroid injection under local anesthetic using sterile prep and drape at the L4-5 level using C-arm fluoroscopic guidance in both AP and lateral views medications injected is 120 mg Depo-Medrol +10mL preservative-free normal saline and 2 mL contrast- condition at discharge is stable patient tolerated procedure well had no complications. ALOK KING MD Oct 11, 2021 09:42
== END | disposition home or self-care (01) ==
LOC: PNCL 08:59
PROVIDERS: ATTEND Anesthesiology
DX: M51.16 Intervertebral disc disorders with radiculopathy, lumbar region (principal); M48.061 Spinal stenosis, lumbar region without neurogenic claudication; M50.10 Cervical disc disorder with radiculopathy, unspecified cervical region; M48.02 Spinal stenosis, cervical region; M17.11 Unilateral primary osteoarthritis, right knee; I25.10 Atherosclerotic heart disease of native coronary artery without angina pectoris; I10 Essential (primary) hypertension; E78.00 Pure hypercholesterolemia, unspecified; E11.9 Type 2 diabetes mellitus without complications; G47.30 Sleep apnea, unspecified; K21.9 Gastro-esophageal reflux disease without esophagitis; F41.9 Anxiety disorder, unspecified; N40.0 Benign prostatic hyperplasia without lower urinary tract symptoms; Z79.899 Other long term (current) drug therapy; Z98.890 Other specified postprocedural states; Z82.49 Family history of ischemic heart disease and other diseases of the circulatory system
CPT/HCPCS: 62323; J1040; Q9965

== ENCOUNTER → 2021-11-29 | Outpatient (CLI) | payer MEDICARE, OTHER ==
[~2021-11-29] MED LIST changes: -IOHEXOL 180 MG/ML 10 ML VIAL. ONE; -methylPREDNISolone ACETATE 80 MG/ML VIAL. ONE
--- NOTE | 2021-11-29 14:10 | RAD ---
EXAMINATION: Upper and lower extremity pressure measurements of ankle/brachial index. INDICATION: Paresthesias in both feet, claudication right leg, diabetes risk factors for arterial dis ease FINDINGS: The ankle/brachial index on the right side is 1.2, and on the left is 1.1. IMPRESSION: Normal KANDICE, bilaterally. Electronically signed by: Jules Whaley MD (11/29/2021 2:08 PM) [id number]
== END ==
LOC: US 13:27
PROVIDERS: ATTEND Family Medicine
DX: R20.2 Paresthesia of skin (principal); I70.211 Atherosclerosis of native arteries of extremities with intermittent claudication, right leg
CPT/HCPCS: 93922

== ENCOUNTER → 2021-12-23 | Outpatient (CLI) | payer MEDICARE, OTHER ==
--- NOTE | 2021-12-23 13:00 | RAD ---
EXAMINATION: MRI LEFT LOWER EXTREMITY JOINT WITHOUT INDICATIONS: Primary osteoarthritis of the left knee. [employer] protocol. TECHNIQUE: Limited MRI of the left knee with single sagittal sequence per [employer] protocol. COMPARISON: Left knee radiograph 11/28/2021 FINDINGS: There is full-thickness cartilage loss throughout the medial compartment. Partial-thickness cartilage loss in the patellofemoral and inner lateral compartment. Small tricompartmental osteophytes. Large complex tear of the medial meniscus with absent posterior horn and body tissue. There may be some dis placed meniscal tissue in the joint space anteriorly. Lateral meniscus is intact. The ACL and PCL are likely at least partially intact. Quadriceps and patellar tendons are intact. Moderate joint effusio n and moderate Florentino cyst. IMPRESSION: 1. Tricompartmental osteoarthritis with full-thickness cartilage loss throughout the medial compartme nt. 2. Complex medial meniscus tear. Electronically signed by: Barbra Alamo MD (12/23/2021 12:58 PM) [id number]
--- NOTE | 2021-12-23 15:47 | RAD ---
EXAM: XR BONE LENGTH 12/23/2021 9:59 AM CLINICAL INDICATION: Arthritis, preop planning COMPARISON: Left knee radiograph 11/28/2021 TECHNIQUE: AP view of the left lower extreme FINDINGS: There is severe medial compartment narrowing with near nmme-ut-fzht articulation, mild ath erosclerosis, and mild degenerative remodeling of the articular surface. Small medial and lateral com partment osteophytes. There is a 6 mm lateral subluxation of the tibia relative to the femur and dege nerative genu varum. No acute fracture or osseous lesion. The joint space at the hip and ankle appear s maintained. IMPRESSION: Severe medial compartment predominant degenerative joint disease of the left knee. Electronically signed by: Barbra Alamo MD (12/23/2021 3:44 PM) [id number]
== END ==
LOC: MRI 09:17
PROVIDERS: ATTEND Orthopaedic Surgery Sports Medicine
DX: S83.232A Complex tear of medial meniscus, current injury, left knee, initial encounter (principal); S83.142A Lateral subluxation of proximal end of tibia, left knee, initial encounter; M17.12 Unilateral primary osteoarthritis, left knee; M25.762 Osteophyte, left knee; M25.462 Effusion, left knee; M71.22 Synovial cyst of popliteal space [Baker], left knee; M21.162 Varus deformity, not elsewhere classified, left knee; X58.XXXA Exposure to other specified factors, initial encounter; Y93.89 Activity, other specified; Y92.89 Other specified places as the place of occurrence of the external cause; Y99.8 Other external cause status
CPT/HCPCS: 73721; 77073

== ENCOUNTER → 2022-01-20 | Outpatient (CLI) | payer MEDICARE, OTHER ==
[~2022-01-20] MED LIST changes: +AMLO-186 PO; +CHOL100099 PO; +DOXY-181 PO; +SERT50TA PO; +TAMS0.4C97 PO
[2022-01-20 08:51] LABS: BASO % 1 % (0-3); EOS # 0.1 x10^3/uL (0.0-0.7); EOS % 2 % (0-3); HEMOGLOBIN 13.5 g/dL (13.0-17.5); LYMPH % 37 % (24-48); MEAN CORPUSCULAR HEMOGLOBIN 33 pg (25-35); MEAN CORPUSCULAR HGB CONC 35 g/dL (31-37); MEAN CORPUSCULAR VOLUME 95 fL (79-100); MONO # 0.5 x10^3/uL (0.0-1.1); MONO % 9 % (0-9); NEUT # 2.7 x10^3/uL (1.8-7.7); NEUT % 51 % (31-73); PLATELET COUNT 205 x10^3/uL (140-400); RED CELL DISTRIBUTION WIDTH 12.8 % (11.5-14.5); WHITE BLOOD COUNT 5.4 x10^3/uL (4.0-11.0)
[2022-01-20 08:53] LABS: CALCIUM 9.5 mg/dL (8.5-10.1); CREATININE 0.9 mg/dL (0.7-1.3); GFR 82.9; POTASSIUM 4.4 mmol/L (3.5-5.1)
[2022-01-20 09:06] LABS: PROTHROMBIN TIME PATIENT 12.9 SEC (11.7-14.0)
--- NOTE | 2022-01-20 11:58 | EKG ---
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
--- NOTE | 2022-01-20 13:24 | RAD ---
EXAM: Chest, 2 views. HISTORY: Pain. Hypertension. COMPARISON: 12/18/2020 FINDINGS: 2 views of the chest are obtained. There is no infiltrate, pleural effusion or pneumothorax . The heart is normal in size. There is a right shoulder arthroplasty. IMPRESSION: No acute pulmonary finding. Electronically signed by: Marta Vázquez MD (01/20/2022 1:21 PM) [id number]
[2022-01-21 01:09] LABS: HEMOGLOBIN A1C 6.1 % (4.8-5.6)
== END ==
LOC: SURGPAT 12:32
PROVIDERS: ATTEND Orthopaedic Surgery Sports Medicine
DX: Z01.818 Encounter for other preprocedural examination (principal); M17.12 Unilateral primary osteoarthritis, left knee; I10 Essential (primary) hypertension; Z96.611 Presence of right artificial shoulder joint
CPT/HCPCS: 36415; 71046; 80048; 82040; 82306; 83036; 85025; 85610; 85651; 85730; 87641; 93005

== ENCOUNTER → 2022-01-31 | Outpatient (CLI) | payer MEDICARE, OTHER ==
[~2022-01-31] MED LIST changes: +OXYC-325 PO; +WARF4TAB64 PO
== END ==
LOC: LAB 10:26
PROVIDERS: ATTEND Orthopaedic Surgery Sports Medicine
DX: Z01.812 Encounter for preprocedural laboratory examination (principal); Z20.822 Contact with and (suspected) exposure to COVID-19; M17.12 Unilateral primary osteoarthritis, left knee
CPT/HCPCS: U0003

== ENCOUNTER 2022-02-04 05:50 | Inpatient (IN) | payer MEDICARE, OTHER ==
[2022-01-22 14:58] VITALS: BP 126/73
[2022-02-04] VITALS (12 sets, daily range): BP systolic 86–160; BP diastolic 43–69
[~2022-02-04] VITALS: Ht 172.7 cm; Wt 85.4 kg
[~2022-02-04 05:50] MED LIST changes: -OXYC-325 PO; -WARF4TAB64 PO
[2022-02-04] MEDS ORDERED: [UNRECOGNIZED DRUG - OTHER] INT ART ONE (06:00)
[2022-02-04] MEDS ORDERED: MORPHINE SULFATE INT ART ONE (06:00)
[2022-02-04] MEDS ORDERED: ROPIVACAINE 0.5% INT ART ONE (06:00)
[2022-02-04] MEDS ORDERED: TRANEXAMIC ACID 1,000 MG in IV NS 50ML -- 1ST BAG INJ ONE (06:00)
[2022-02-04] MEDS ORDERED: HYDROmorphone 2 MG/ML INJ. IVP PRN (06:00)
[2022-02-04] MEDS ORDERED: fentaNYL PF VIAL 100 MCG/2 ML VIAL IVP PRN ×3 (06:00→07:30)
[2022-02-04] MEDS ORDERED: ACETAMINOPHEN 500 MG TABLET PO PRN (06:00)
[2022-02-04] MEDS ORDERED: IV RINGERS,LACTATED 1000ML 1,000 ML IV SCH (06:00)
[2022-02-04] MEDS ORDERED: EPINEPHRINE INT ART ONE (06:00)
[2022-02-04] MEDS ORDERED: PROCHLORPERAZINE 10 MG/2 ML VIAL. IVP PRN (06:00)
[2022-02-04] MEDS ORDERED: MORPHINE SULFATE 2 MG/ML INJ. IVP PRN ×2 (06:00→07:30)
[2022-02-04] MEDS ORDERED: ROPIVacaine 0.5% PF 20 ML VIAL. ONE (06:51)
[2022-02-04] MEDS ORDERED: TRANEXAMIC ACID in NS IVPB 100 ML ONE (06:52)
[2022-02-04] MEDS ORDERED: DEXAMETHASONE SOD PHOS 4 MG/ML VIAL ONE (06:54)
[2022-02-04] MEDS ORDERED: MIDAZOLAM HCL/PF 2 MG/2 ML VIAL. ONE (06:54)
[2022-02-04] MEDS ORDERED: SEVOFLURANE > 120 MINUTES. IH ONE (06:54)
[2022-02-04] MEDS ORDERED: SUCCINYLCHOLINE 200 MG/10 ML VIAL. ONE (06:54)
[2022-02-04] MEDS ORDERED: ONDANSETRON PF 4 MG/2 ML VIAL. ONE (06:54)
[2022-02-04] MEDS ORDERED: PROPOFOL 50 ML IV ONE (06:54)
[2022-02-04] MEDS ORDERED: KETAMINE HCL IN NACL, ISO-OSM 50 MG/5 ML SYRINGE ONE (06:54)
[2022-02-04] MEDS ORDERED: LIDOCAINE 2% PF 5 ML VIAL. ONE (06:54)
[2022-02-04] MEDS ORDERED: fentaNYL PF VIAL 100 MCG/2 ML VIAL ONE (06:55)
[2022-02-04] MEDS ORDERED: CALCIUM CARBONATE 500 MG TAB.CHEW PO PRN (07:30)
[2022-02-04] MEDS ORDERED: diphenhydrAMINE 50 MG/ML VIAL IVP PRN (07:30)
[2022-02-04] MEDS ORDERED: PROCHLORPERAZINE 5 MG TABLET. PO PRN (07:30)
[2022-02-04] MEDS ORDERED: METOCLOPRAMIDE HCL 10 MG/2 ML VIAL. IVP PRN (07:30)
[2022-02-04] MEDS ORDERED: ZOLPIDEM 5 MG TABLET. PO PRN (07:30)
[2022-02-04] MEDS ORDERED: 0.9 % SODIUM CHLORIDE 10 ML DISP.SYRIN. IV PRN (07:30)
[2022-02-04] MEDS: IV NORMAL SALINE 1000ML BAG 1,000 ML IV SCH (07:30)
[2022-02-04] MEDS ORDERED: DEXTROSE 50% 25 GM / 50ML DISP.SYRIN. IV PRN (07:30)
[2022-02-04] MEDS ORDERED: GLYCOPYRROLATE 1 MG/5 ML VIAL. ONE (07:53)
[2022-02-04] MEDS: INSULIN LISPRO 300 UNITS/3 ML VIAL. SQ SCH ×3 (08:00→17:00)
[2022-02-04] MEDS ORDERED: TRANEXAMIC ACID 1,000 MG in IV NS 50ML -- 2ND BAG INJ ONE (08:00)
[2022-02-04] MEDS ORDERED: HYDROmorphone 2 MG/ML INJ. ONE (08:03)
[2022-02-04] MEDS: EZETIMIBE 10 MG TABLET. PO SCH (09:00)
[2022-02-04] MEDS: MULTIVITAMIN with MINERAL TABLET. PO SCH (09:00)
[2022-02-04] MEDS: CHLORTHALIDONE 25 MG TABLET. PO SCH (09:00)
[2022-02-04] MEDS: LISINOPRIL 20 MG TABLET PO SCH (09:00)
[2022-02-04] MEDS: TAMSULOSIN 0.4 MG CAP.ER.24H. PO SCH (09:00)
[2022-02-04] MEDS: SENNOSIDES/DOCUSATE 8.6/50MG TABLET. PO SCH (09:00)
[2022-02-04] MEDS: SERTRALINE 50 MG TABLET. PO SCH (09:00)
[2022-02-04] MEDS ORDERED: VASOPRESSIN 20 UNIT/ML VIAL. ONE (09:03)
--- NOTE | 2022-02-04 09:26 | PDOC4 ---
Operative Note Operative Note Date of procedure: 02/04/2022 Surgeon: Aly Hare Assistants: Enrico Montes and Mary Jane Rocha Preoperative gnosis: Advanced primary left knee degenerative joint disease Postop diagnosis: Same Procedure performed: Left total knee arthroplasty Findings: Advanced primary left knee degenerative joint disease Anesthesia: General Blood loss: 50 mL Tourniquet time: 57 minutes Complications: Nondisplaced fracture involving a segment of proximal medial tibia that was 3 cm long by 1 cm at the very peripheral margin, fracture line noted to proceed distally a total of 2-1/2 to 3 cm. Components inserted [employer] cobalt chrome size 7 femoral component, 23 mm biconvex patella, 9 mm thick articular polyethylene insert, size 5 left journey tibial baseplate Reason for procedure: Patient is a very pleasant 71-year-old gentleman who had tried and failed conservative therapies including injections, and exercise program and requested a left total knee arthroplasty. He had previously undergone a right total knee and was happy with this side. We discussed the risk benefits and alternatives and he wished to proceed. Description of procedure: Patient was greeted in the preoperative area by myself or the correct extremity was verified and marked. He was taken the operative suite and antibiotics were started as he was brought back. Once in the operating, he was transferred on spine to the operating table and secured to bed with all pressure points padded and had successful induction of a general anesthetic. Examination under anesthesia demonstrated range of motion 5 degrees to 110 degrees. Knee was stable to varus and valgus. Nonsterile tourniquet was taped to his left thigh, padded rest across foot of the bed to maintain his knee at 90 degrees and a padded bump laterally at his hip were secured to the bed. Left lower extremity was prepped and draped in the usual sterile fashion we conducted our standard preoperative timeout. Ioban sandwich was used. After this, I palpated marked surface anatomy and nicol a line for my planned anterior midline skin incision. The extremity was exsanguinated with an Esmarch and tourniquet insufflated to 250 mmHg. I incised skin with a scalpel and dissected subcutaneous tissue to expose the extensor mechanism including quadriceps tendon, borders of the patella patellar tendon and tibial tubercle. I then palpated and made lopez with electrocautery for my medial parapatellar arthrotomy and created this with a scalpel. I then performed my medial release past the mid coronal line with combination of electrocautery and Oleary elevator, taking down some osteophytes as well. After this I bluntly dissected the fat pad off the posterior aspect of the patellar tendon with the knee in extension and protected the patellar tendon with an [place] and excised the fat pad. I then flexed the knee, position my Z retractors laterally and excised the cruciate ligaments. I then removed some synovium from the anterior distal femurs for visualization of that. I then pinned my visionary cutting block into place and made my distal femoral cut. After this I remove the visionary cutting block and the pins and impacted my 5 1 cutting block into position, securing it with threaded pins, and checking my anterior cut with an ramiro wing. After this I made my distal femoral cuts remove the cutting guide and 20 pieces. I made sure to remove any osteophytes posteriorly. I then directed my attention to reposition the EZ retractors and using extra medullary tibial cutting block pinned this into position and made my proximal tibial cut, delivering the bony piece from the field with circumferentially electrocautery. I took care to remove any bone at the periphery. The leg was brought onto extension, is happy with alignment with a spacer block and drop candido in place. A laminar real estate teacher was then introduced, and I removed meniscal tissue leaving a rim for later identification if needed. After this, I reposition the knee and added back in my pickle fork and Z retractors and sized and pinned in place my size 5 trial tibial baseplate, drilling and then punching for this, while impa cting for the fins I noted the fracture as described above, I felt it was small enough to be well protected by the tibial component. I then placed my trial femoral component in place secured it with a pin and reamed and punched for the cam portion and placed the cam component followed by a trial 10 mm articular insert. I did not feel the patient quite at full extension so I downsized to 9, range of motion was 0 to 140 degrees and knee was stable to varus and valgus in extension and mid flexion with these components in place. His patella tracked well. I then sized and reamed for the patellar button, he had good patellar tracking with all trial components in place. We then removed all trial components thoroughly irrigated all bony surfaces and proceeded to cement in place her tibia followed by our femoral component, taking care to remove excess bone cement. Trial at 9 articular insert was then placed cement was allowed polymerized with the leg in extension, patellar button was clamped and secured with cement in place. While the cement was polymerized in, I injected my. She can make sure the periincisional soft tissues as well as around the capsule and knee. After the cement hardened, patient had excellent range of motion and stability I remove the trial articular insert, thoroughly irrigated the knee again and proceeded my polyethylene articular insert visualizing that it had se ated and locked in place fully. I noted no excess cement overhang anywhere. Then let tourniquet down, he had fair amount of oozing especially from the bone cuts at the distal femur and therefore I elected to place a 1/8 inch Hemovac exiting superolaterally from the knee. I then closed the arthrotomy with simple interrupted #1 Vicryl, arthrotomy closure tested in flexion with no extravasation of blood noted. Inverted interrupted 2-0 Vicryl in a multilayered fashion was used for subcutaneous tissue and running 3 oh strata fix in a buried subcuticular fashion was used for skin. Prior to wound closure all counts correct x2. No complications other than listed above. At the conclusion, the patient is waiting for anesthesia transferred on spine to the recovery room cart and taken to PACU stable and extubated condition. Postoperative plan is admitted to the joint center for DVT antibiotic prophylaxis, pain control, PT and OT. I will follow along with this course. ALY HARE II, MD February 04, 2022 09:26
[2022-02-04] MEDS ORDERED: INSULIN LISPRO 100 UNIT/ML 3ML VIAL for OP,RR ONLY. SQ PRN (10:00)
--- NOTE | 2022-02-04 10:05 | RAD ---
EXAM: 2 views of the left knee DATE: 02/04/2021 INDICATION: Reason: POST OP COMPARISON: Left knee radiograph from 11/28/2021 FINDINGS/ IMPRESSION: 1. Changes of left total knee arthroplasty are seen, in good alignment without definite hardware com plication or fracture. 2. Postoperative soft tissue changes are seen including drain and intra-articular gas. Electronically signed by: Memo Alba DO (02/04/2022 10:02 AM) [id number]
[2022-02-04] MEDS: metFORMIN 500 MG TABLET PO SCH ×2 (11:30→17:14)
[2022-02-04] MEDS: ONDANSETRON PF 4 MG/2 ML VIAL. IVP SCH ×2 (12:00→18:00)
[2022-02-04] MEDS: ONDANSETRON ODT 4 MG TAB.RAPDIS. PO SCH ×2 (12:00→18:00)
[2022-02-04 12:46] LABS: PROTHROMBIN TIME PATIENT 13.2 SEC (11.7-14.0)
[2022-02-04] MEDS ORDERED: WARFARIN 7.5 MG TABLET. PO ONE (16:00)
[2022-02-04] MEDS: FERROUS SULFATE 325 MG TABLET. PO SCH (17:14)
[2022-02-04] MEDS: ATORVASTATIN CALCIUM 20 MG TABLET PO SCH (22:10)
[2022-02-04] MEDS ORDERED: ACETAMINOPHEN 500 MG TABLET PO ONE (22:30)
[2022-02-05 03:15] VITALS: BP 108/50
[2022-02-05] MEDS: TAMSULOSIN 0.4 MG CAP.ER.24H. PO SCH (03:30)
[2022-02-05] MEDS: ONDANSETRON PF 4 MG/2 ML VIAL. IVP SCH ×2 (06:00)
[2022-02-05] MEDS: ONDANSETRON ODT 4 MG TAB.RAPDIS. PO SCH ×2 (06:00)
[2022-02-05] MEDS ORDERED: MAGNESIUM HYDROXIDE 2,400 MG/30 ML ORAL.SUSP. PO PRN (06:00)
[2022-02-05] MEDS: ACETAMINOPHEN 500 MG TABLET PO SCH ×3 (06:50→17:34)
[2022-02-05 07:00] VITALS: BP 119/57
[2022-02-05] MEDS: IV NORMAL SALINE 1000ML BAG 1,000 ML IV SCH (07:30)
--- NOTE | 2022-02-05 07:31 | NUR ---
Assisted to recliner w/o incident. Dressing D/I.
[2022-02-05 07:39] LABS: HEMATOCRIT 34.2 % (39.0-53.0); HEMOGLOBIN 11.9 g/dL (13.0-17.5)
[2022-02-05 07:52] LABS: PROTHROMBIN TIME PATIENT 14.1 SEC (11.7-14.0)
[2022-02-05] MEDS: INSULIN LISPRO 300 UNITS/3 ML VIAL. SQ SCH ×3 (08:00→17:00)
--- NOTE | 2022-02-05 08:24 | PDOC ---
ORTHO PROGRESS NOTES DATE: 02/05/22 TIME: 08:23 Subjective He tells me his knee is quite sore, he has been trying to avoid the opioids. Denies any other complaint or concern. Vitals Vital Signs Date Time Temp Pulse Resp B/P (MAP) Pulse Ox O2 Delivery O2 Flow Rate FiO2 02/05/22 07:00 97.9 63 18 119/57 (77) 96 Room Air 97.9 02/04/22 09:37 10.0 Labs Laboratory Tests Test 02/04/22 06:20 02/04/22 06:26 02/04/22 09:47 02/04/22 11:36 POC SARS CoV-2 Antigen Negative (NEGATIVE) Glucose (Fingerstick) 125 mg/dL (70-99) 198 mg/dL (70-99) 175 mg/dL (70-99) Prothrombin Time 13.2 SEC (11.7-14.0) Prothromb Time International Ratio 1.0 (0.8-1.1) Test 02/04/22 16:50 02/04/22 20:33 02/05/22 06:45 Glucose (Fingerstick) 164 mg/dL (70-99) 152 mg/dL (70-99) Hemoglobin 11.9 g/dL (13.0-17.5) Hematocrit 34.2 % (39.0-53.0) Mean Corpuscular Hemoglobin Concent 35 g/dL (31-37) Prothrombin Time 14.1 SEC (11.7-14.0) Prothromb Time International Ratio 1.1 (0.8-1.1) Laboratory Tests Test 02/04/22 09:47 02/04/22 11:36 02/04/22 16:50 02/04/22 20:33 Glucose (Fingerstick) 198 mg/dL (70-99) 175 mg/dL (70-99) 164 mg/dL (70-99) 152 mg/dL (70-99) Prothrombin Time 13.2 SEC (11.7-14.0) Prothromb Time International Ratio 1.0 (0.8-1.1) Test 02/05/22 06:45 Hemoglobin 11.9 g/dL (13.0-17.5) Hematocrit 34.2 % (39.0-53.0) Mean Corpuscular Hemoglobin Concent 35 g/dL (31-37) Prothrombin Time 14.1 SEC (11.7-14.0) Prothromb Time International Ratio 1.1 (0.8-1.1) X-Rays X-rays were reviewed Assessment and Plan He will continue PT and OT today, he will finish antibiotic prophylaxis we will maintain him on his Coumadin. Drain will be removed today. I did discuss using stronger pain medicines with him and encouraged him to do so at this point. JOHN HARE II February 05, 2022 08:24
[2022-02-05] MEDS: CHLORTHALIDONE 25 MG TABLET. PO SCH (09:00)
[2022-02-05] MEDS: MULTIVITAMIN with MINERAL TABLET. PO SCH (09:00)
[2022-02-05] MEDS: SERTRALINE 50 MG TABLET. PO SCH (09:00)
[2022-02-05] MEDS: CHOLECALCIFEROL (VITAMIN D3) 5,000 UNIT CAPSULE PO SCH (09:00)
[2022-02-05] MEDS: LISINOPRIL 20 MG TABLET PO SCH (09:00)
[2022-02-05] MEDS: EZETIMIBE 10 MG TABLET. PO SCH (09:00)
[2022-02-05] MEDS: oxyCODONE IR 5 MG TABLET PO PRN ×4 (09:00→21:43)
[2022-02-05] MEDS: metFORMIN 500 MG TABLET PO SCH ×3 (09:00→17:30)
[2022-02-05] MEDS: SENNOSIDES/DOCUSATE 8.6/50MG TABLET. PO SCH (09:01)
[2022-02-05] MEDS: FERROUS SULFATE 325 MG TABLET. PO SCH ×2 (09:01→17:30)
[2022-02-05 10:56] VITALS: BP 113/59
--- NOTE | 2022-02-05 11:33 | NUR ---
Pharmacy Warfarin Dosing Note S: Pharmacy consulted to assist with anticoagulation therapy started O: TOM GRAHAM is a 71 year old M with TKA LABS: Last INR: 1.1 Last HGB: 11.9 Last HCT: 34.2 Last dose of 7.5 mg given on 02/04/22 at 1714 Ongoing Drug Interactions: SERTRALINE A:INR of 1.1 is below desired range. Target range for this patient is: 1.6 - 2.5 P: Warfarin dose: 5 mg Today at 1600 Bridge Therapy: None Next INR due 02/06 AM Pharmacy anticoagulation service will continue to follow. MIKE VEGA RPH, 02/05/22 [id number]
[2022-02-05] MEDS ORDERED: ONDANSETRON ODT 4 MG TAB.RAPDIS. PO PRN (12:00)
[2022-02-05] MEDS ORDERED: ONDANSETRON PF 4 MG/2 ML VIAL. IVP PRN (12:00)
[2022-02-05 15:00] VITALS: BP 136/61
[2022-02-05] MEDS ORDERED: BISACODYL 10 MG SUPP.RECT. PR PRN (16:00)
[2022-02-05] MEDS ORDERED: WARFARIN 5 MG TABLET. PO ONE (16:00)
[2022-02-05 19:00] VITALS: BP 174/87
[2022-02-05] MEDS: ATORVASTATIN CALCIUM 20 MG TABLET PO SCH (21:42)
[2022-02-05 23:00] VITALS: BP 149/75
[2022-02-06] MEDS: ACETAMINOPHEN 500 MG TABLET PO SCH ×3 (01:08→13:00)
[2022-02-06 03:00] VITALS: BP 153/70
[2022-02-06] MEDS: TAMSULOSIN 0.4 MG CAP.ER.24H. PO SCH (03:02)
[2022-02-06] MEDS: oxyCODONE IR 5 MG TABLET PO PRN ×3 (03:02→13:13)
[2022-02-06 06:38] LABS: HEMATOCRIT 34.3 % (39.0-53.0); HEMOGLOBIN 11.8 g/dL (13.0-17.5)
[2022-02-06 06:58] LABS: PROTHROMBIN TIME PATIENT 21.1 SEC (11.7-14.0)
[2022-02-06 07:00] VITALS: BP 128/65
[2022-02-06] MEDS: INSULIN LISPRO 300 UNITS/3 ML VIAL. SQ SCH ×2 (08:00→12:00)
[2022-02-06] MEDS: EZETIMIBE 10 MG TABLET. PO SCH (08:25)
[2022-02-06] MEDS: metFORMIN 500 MG TABLET PO SCH ×2 (08:25→13:13)
[2022-02-06] MEDS: SENNOSIDES/DOCUSATE 8.6/50MG TABLET. PO SCH (08:25)
[2022-02-06] MEDS: MULTIVITAMIN with MINERAL TABLET. PO SCH (08:26)
[2022-02-06] MEDS: CHLORTHALIDONE 25 MG TABLET. PO SCH (08:26)
[2022-02-06] MEDS: CHOLECALCIFEROL (VITAMIN D3) 5,000 UNIT CAPSULE PO SCH (08:26)
[2022-02-06] MEDS: FERROUS SULFATE 325 MG TABLET. PO SCH (08:27)
[2022-02-06] MEDS: SERTRALINE 50 MG TABLET. PO SCH (08:27)
[2022-02-06] MEDS: LISINOPRIL 20 MG TABLET PO SCH (09:00)
--- NOTE | 2022-02-06 09:09 | DISCH ---
DISCHARGE INSTRUCTIONS Condition on Discharge Condition on Discharge: Stable Activity After Discharge Activity Instructions for Disc: Activity as tolerated, Other, see below Bathing Instructions: Shower-keep dressing dry, No Tub Bath until see Lifting Instructions after Dis: No heavy lifting, No pulling or pushing, Do not lift >10 pounds Exercise Instruction after Dis: Exercise per therapy, Progress as tolerated Driving Instructions after Dis: Do not drive Weight Bearing Status after Di: No restrictions Diet after Discharge Diet after Discharge: Regular, Diabetic No Calorie Level Diet Texture: Regular Liquid Texture: Thin Liquid Swallowing Supervision: None needed Wound Incision Care Wound/Incision Care: Ice to area for comfort, Keep wound elevated, Do not change dressing Contacting the DRPaula after DC Call your doctor for: Concerns you may have Follow-Up Follow up with: Surgeon in 2 wks Treatment/Equipment after DC Adaptive Equipment Issued: None JOHN HARE II, MD February 06, 2022 09:09
[2022-02-06 11:00] VITALS: BP 110/60
--- NOTE | 2022-02-06 11:11 | PDOC ---
ORTHO PROGRESS NOTES DATE: 02/06/22 TIME: 11:10 Subjective He feels like his pain is doing fine. He has been able to maintain his ADLs fairly well. He is making good progress with PT and OT. No other complaints or concerns Vitals Vital Signs Date Time Temp Pulse Resp B/P (MAP) Pulse Ox O2 Delivery O2 Flow Rate FiO2 02/06/22 08:27 Room Air 02/06/22 07:00 98.6 78 18 128/65 (86) 95 98.6 Labs Laboratory Tests Test 02/04/22 11:36 02/04/22 16:50 02/04/22 20:33 02/05/22 06:45 Prothrombin Time 13.2 SEC (11.7-14.0) 14.1 SEC (11.7-14.0) Prothromb Time International Ratio 1.0 (0.8-1.1) 1.1 (0.8-1.1) Glucose (Fingerstick) 175 mg/dL (70-99) 164 mg/dL (70-99) 152 mg/dL (70-99) Hemoglobin 11.9 g/dL (13.0-17.5) Hematocrit 34.2 % (39.0-53.0) Mean Corpuscular Hemoglobin Concent 35 g/dL (31-37) Test 02/05/22 07:03 02/05/22 11:08 02/05/22 17:02 02/05/22 22:01 Glucose (Fingerstick) 120 mg/dL (70-99) 148 mg/dL (70-99) 132 mg/dL (70-99) 97 mg/dL (70-99) Test 02/06/22 05:50 02/06/22 07:10 Hemoglobin 11.8 g/dL (13.0-17.5) Hematocrit 34.3 % (39.0-53.0) Mean Corpuscular Hemoglobin Concent 35 g/dL (31-37) Prothrombin Time 21.1 SEC (11.7-14.0) Prothromb Time International Ratio 1.9 (0.8-1.1) Glucose (Fingerstick) 123 mg/dL (70-99) Laboratory Tests Test 02/05/22 17:02 02/05/22 22:01 02/06/22 05:50 02/06/22 07:10 Glucose (Fingerstick) 132 mg/dL (70-99) 97 mg/dL (70-99) 123 mg/dL (70-99) Hemoglobin 11.8 g/dL (13.0-17.5) Hematocrit 34.3 % (39.0-53.0) Mean Corpuscular Hemoglobin Concent 35 g/dL (31-37) Prothrombin Time 21.1 SEC (11.7-14.0) Prothromb Time International Ratio 1.9 (0.8-1.1) Notes He is awake and alert and sitting in a chair. Incisional wound VAC is dry. Mild effusion is present in his knee. Normal motor and sensation are present distally Assessment and Plan We will plan on discharging him home, he has outpatient PT set up tomorrow, he has help at home. He will be discharged on Coumadin. Weight-bear as tolerated JOHN HARE II, MD February 06, 2022 11:11
[2022-02-06] MEDS ORDERED: WARFARIN 4 MG TABLET. PO ONE (14:00)
[2022-02-06] MEDS ORDERED: OXYC-325 PO (15:00)
[2022-02-06] MEDS ORDERED: WARF4TAB64 PO (15:01)
--- NOTE | 2022-02-06 16:15 | NUR ---
Discharge instructions given. Answered questions and concerns. Verbalized understanding. Pt discharged home accompanied by friend. Escorted out by w/c.
--- NOTE | 2022-02-07 08:24 | PDOC3 ---
Discharge Summary Visit Information Date of Admission: February 04, 2022 Date of Discharge: February 06, 2022 Admitting Diagnosis: Advanced left knee primary degenerative joint disease Final Diagnosis Left total knee arthroplasty Brief Hospital Course Allergies Allergies Coded Allergies Type Severity Reaction Last Updated Verified ibuprofen Allergy Intermediate Hives 12/31/20 Yes Vital Signs Vital Signs Date Time Temp Pulse Resp B/P (MAP) Pulse Ox O2 Delivery O2 Flow Rate FiO2 02/06/22 13:50 Room Air 02/06/22 11:00 98.8 73 19 110/60 (77) 96 98.8 Lab Results Laboratory Tests Test 02/05/22 11:08 02/05/22 17:02 02/05/22 22:01 02/06/22 05:50 Glucose (Fingerstick) 148 mg/dL (70-99) 132 mg/dL (70-99) 97 mg/dL (70-99) Hemoglobin 11.8 g/dL (13.0-17.5) Hematocrit 34.3 % (39.0-53.0) Mean Corpuscular Hemoglobin Concent 35 g/dL (31-37) Prothrombin Time 21.1 SEC (11.7-14.0) Prothromb Time International Ratio 1.9 (0.8-1.1) Test 02/06/22 07:10 02/06/22 10:52 Glucose (Fingerstick) 123 mg/dL (70-99) 113 mg/dL (70-99) Laboratory Tests Test 02/06/22 10:52 Glucose (Fingerstick) 113 mg/dL (70-99) Brief Hospital Course Mr. Robertson is a 71 old male patient who had failed conservative therapies for his severe and progressive left knee pain and elected to proceed with total knee arthroplasty. Surgery was well-tolerated by the patient and he recovered well from anesthesia in the PACU. He was taken to the general surgical floor for care and observation. He received DVT and antibiotic prophylaxis. He received physical and occupational therapy. His hospital course was essentially uneventful and he made good progress with his activities of daily living and therapy. Prior to discharge, his pain was controlled on oral pain medicine he was tolerating her diet and was having normal bowel and bladder function. He had remained hemodynamically stable and afebrile throughout his hospital course. Discharge Information Condition at Discharge: Stable Follow Up: Weeks Disposition/Orders: D/C to Home Scheduled Amlodipine Besylate (Amlodipine Besylate) 5 Mg Tablet, 5 MG PO DAILY for BP CONTROL, (Reported) Entered as Reported by: FLORA BLAKE on 01/22/22 1439 Last Taken: Unknown Dose on 02/03/22 Last Action: Continued on 02/04/22731 by FRANCA HARE MD Chlorthalidone (Chlorthalidone ) 25 Mg Tablet, 25 MG PO DAILY for BP CONTROL, (Reported) Entered as Reported by: FLORA BLAKE on 02/15/18 1048 Last Taken: Unknown Dose on 02/03/22 Last Action: Continued on 02/04/22731 by FRANCA HARE MD Cholecalciferol (Vitamin D3) (Vitamin D3) 250 Mcg Capsule, 250 MCG PO DAILY for VITAMIN D SUPPLEMENT, (Reported) Entered as Reported by: FLORA BLAKE on 01/22/22 1448 Last Taken: Unknown Dose on 02/03/22 Last Action: Converted on 02/04/22731 by FRANCA HARE MD Ezetimibe (Zetia) 10 Mg Tablet, 1 TAB PO DAILY for cholesterol for 30 Days, #30 Ref 0 (Reported) Entered as Reported by: EDILBERTO TALBERT on 12/08/19 1144 Last Taken: Unknown Dose on 02/03/22 Last Action: Continued on 02/04/22731 by FRANCA HARE MD Lisinopril (Lisinopril) 40 Mg Tablet, 1 TAB PO DAILY for BP CONTROL, #30 Ref 5 (Reported) Entered as Reported by: MADDIE LOPEZ on 10/02/17 1103 Last Taken: Unknown Dose on 02/03/22 Last Action: Continued on 02/04/22731 by FRANCA HARE MD Metformin Hcl (Metformin Hcl) 1,000 Mg Tablet, 500 MG PO TIDAC for ANTI- DIABETIC, Ref 0 (Reported) LAST DOSE GIVEN:03/04/18 1200 Entered as Reported by: MADDIE LOPEZ on 10/02/17 1103 Last Taken: Unknown Dose on 02/03/22 Last Action: Converted on 02/04/22731 by FRANCA HARE MD Sertraline Hcl (Zoloft) 50 Mg Tablet, 50 MG PO DAILY for ANTI-DEPRESSANT, Ref 0 (Reported) Entered as Reported by: FLORA BLAKE on 01/22/221438 Last Taken: Unknown Dose on 02/03/22 Last Action: Continued on 02/04/22731 by FRANCA HARE MD Simvastatin (Simvastatin) 80 Mg Tablet, 40 MG PO DAILY for CHOLESTEROL CONTROL, #30 Ref 5 (Reported) Entered as Reported by: MADDIE LOPEZ on 10/02/17 1103 Last Taken: Unknown Dose on 02/03/22 Last Action: Converted on 02/04/22731 by FRANCA HARE MD Tamsulosin Hcl (Flomax) 0.4 Mg Cap.er.24h, 0.4 MG PO DAILY for PROSTATE ISSUES, (Reported) Entered as Reported by: FLORA BLAKE on 01/22/221438 Last Taken: Unknown Dose on 02/03/22 Last Action: Continued on 02/04/22731 by FRANCA HARE MD Warfarin Sodium (Warfarin Sodium) 4 Mg Tablet, 4 MG PO DAILY for blood thinner, #30 (Reported) Entered as Reported by: SHIRLEY ORANTES on 02/06/22 1501 Scheduled PRN Oxycodone HCl/Acetaminophen (Percocet 5-325 mg Tablet) 1 Each Tablet, 1 TAB PO 4-6hrs prn PRN for PAIN MDD 2 Tablet(s) for 10 Days, #10 Ref 0 (Reported) Entered as Reported by: SHIRLEY ORANTES on 02/06/22 1500 Sildenafil Citrate (Viagra) 100 Mg Tablet, 100 MG PO ONCE PRN for ED, (Reported) Entered as Reported by: FLORA BLAKE on 01/22/221438 Last Action: HELD on 02/04/22731 by FRANCA HARE MD Discontinued Medications Aspirin (Aspir-Low) 81 Mg Tablet.dr, 1 TAB PO DAILY for heart health, #30 Ref 3 (Reported) Entered as Reported by: EDILBERTO TALBERT on 12/08/19 114 Last Taken: Unknown Dose on 01/21/22 Last Action: HELD on 02/04/22731 by FRANCA HARE MD Meloxicam (Meloxicam) 7.5 Mg Tablet, 7.5 MG PO DAILY for pain, (Reported) Entered as Reported by: EDILBERTO TALBERT on 12/08/19 114 Last Taken: Unknown Dose on 02/03/22 Last Action: HELD on 02/04/22 0932 by FRANCA HARE MD Patient Instructions Patient Instructions He will be discharged home, weight-bear as tolerated with assistive device. He has outpatient physical therapy set up. He will remain on Coumadin for 1 month. I will see him back in 2 weeks, sooner should a problem arise. Worrisome signs and symptoms that should prompt a phone call to my office were discussed and his questions were answered. Justicifation of Admission Dx: Justifications for Admission: Justification of Admission Dx: JOHN Hagen II, MD February 07, 2022 08:24
== END 2022-02-06 16:15 | disposition home or self-care (01) | DRG 470 ==
LOC: SURG 05:50 → 4 NORTH 07:27 → EDSTATUS 07:30
PROVIDERS: ADMIT Orthopaedic Surgery Sports Medicine; ATTEND Orthopaedic Surgery Sports Medicine
PROC: 0SRD0J9 Replacement of Left Knee Joint with Synthetic Substitute, Cemented, Open Approach (ICD-10-PCS; principal; 2022-02-04 07:30)
DX: M17.12 Unilateral primary osteoarthritis, left knee (principal); Z79.01 Long term (current) use of anticoagulants; Z20.822 Contact with and (suspected) exposure to COVID-19; Z88.8 Allergy status to other drugs, medicaments and biological substances
CPT/HCPCS: 36415; 73560; 82962; 85014; 85018; 85610; 86850; 86900; 86901; A4213; A4930; A6253; A6402; A6450; A6454; C1713; C1776; J0171; J0330; J0690; J1100; J1170; J1815; J2250; J2270; J2405; J2704; J2795; J3010; J3490; 97110-GP; 97116-GP; 97150-GP; 97530-GP; 97535-GO; G0378